=== PATIENT | female | born 1985 | race Two or more races ===

== ENCOUNTER 2016-04-21 13:17 | Emergency (ER) | payer MEDICAID, OTHER ==
[~2016-04-21] VITALS: Ht 167.6 cm; Wt 77.1 kg
[~2016-04-21 13:17] MED LIST: ABILIFY10 MG ORAL; ABILIFY15 MG ORAL; AFRIN15 ML NASAL; BENZTROPINE MESY1 MG PO; CIPRO500 MG PO; ELOCON15 G1 TP; IBUPROFEN600 MG ORAL; IBUPROFEN600 MG PO; LOESTRIN FE 1-1 EACH PO; LUTERA1 EACH PO; MONISTAT 745 GM VG; ZOFRAN8 MG ORAL
[2016-04-21 14:06] VITALS: BP 105/64
--- NOTE | 2016-04-21 14:29 | Emergency Room Report ---
History of Present Illness General Chief Complaint: Multiple Trauma/Fall Source: Patient Present Illness HPI 30-year-old female presents to emergency Department complaining of bilateral shoulder pain right-sided thigh pain in addition to left foot pain times one day status post mechanical slip and fall at work. Patient denies pain with ambulation patient states pain is exacerbated with palpation she rates her pain as 7/10 in severity. Denies bruises at this time denies erythema patient denies back pain or neck pain. Patient states she did not hit her head she did not lose consciousness. Denies open wounds. Denies numbness tingling or loss of sensation or gross motor movements of the extremities, incontinence of bowel or bladder. Denies CP, Palpitations, LOC, AMS, dizziness, Changes in Vision, Sensation, paresthesias, or a sudden severe headache. Allergies: Coded Allergies: No Known Allergies (Unverified , 10/26/12) Patient History Past Medical History: see triage record Past Surgical History: none Pertinent Family History: none Last Menstrual Period: 03/27/16 Now: No : 0 Immunizations: UTD Reviewed Nursing Documentation: PMH: Agreed, PSxH: Agreed Nursing Documentation-PMH Past Medical History: No Stated History Review of Systems All Other Systems: negative except mentioned in HPI Physical Exam Vital Signs Date Time Temp Pulse Resp B/P Pulse Ox O2 Delivery O2 Flow Rate FiO2 04/21/16 13:37 98.8 97 18 105/64 95 Room Air Sp02 EP Interpretation: reviewed, normal General Appearance: no apparent distress, alert, GCS 15, non-toxic Head: normocephalic, atraumatic Eyes: bilateral eye PERRL, bilateral eye normal inspection ENT: hearing grossly normal, normal pharynx, no angioedema, normal voice Neck: full range of motion, supple/symm/no masses Respiratory: chest non-tender, lungs clear, normal breath sounds, speaking full sentences Cardiovascular #1: regular rate, rhythm, no edema Gastrointestinal: normal bowel sounds, non tender, soft, no guarding, no rebound Rectal: deferred Genitourinary: normal inspection, no CVA tenderness Musculoskeletal: back normal, gait/station normal, normal range of motion, no calf tenderness, tender - TTP to bilateral shoulders, FROM with Pain , TTP to dorsum of left foot, and TTP to lateral right thight, no obvious deformities noted, no erythema, mild bruise noted to posterior right shoulder, no midline neck or spinal TTP. Neurologic: alert, oriented x3, responsive, motor strength/tone normal, sensory intact, speech normal Psychiatric: judgement/insight normal, memory normal, mood/affect normal, no suicidal/homicidal ideation Skin: normal color, no rash, warm/dry, well hydrated, other - mild bruise posterior rigth shoulder. Lymphatic: no adenopathy Medical Decision Making PA Attestation Dr. Newberry is my supervising Physician whom patient management has been discussed with. Diagnostic Impression: Primary Impression: Contusion Qualified Codes: S40.021A - Contusion of right upper arm, initial encounter Additional Impression: Fall Qualified Codes: W19.XXXA - Unspecified fall, initial encounter ER Course Pt. presents to the ED c/o of lateral shoulder pain, right thigh pain, left foot pain status post mechanical slip and fall at work. -No loss of consciousness, did not hit her head. Ddx considered but are not limited to Fracture, dislocation, contusion, Sprain/ Strain/Spasm Vital signs: are WNL, pt. is afebrile H&PE are most consistent with contusions will rule out fractures with imaging ORDERS: - X-ray Right Shoulder 3 views - negative for fx, Dislocation, or significant soft tissue injury, per preliminary read in ED by . - X-ray Left Shoulder 3 views - negative for fx, Dislocation, or significant soft tissue injury, per preliminary read in ED by Dr. Kohli - X-ray Left Foot 3 views - negative for fx, Dislocation, or significant soft tissue injury, per preliminary read in ED by Dr. Kohli ED INTERVENTIONS: - 500mg Tylenol PO DISCHARGE: At this time pt. is stable for d/c to home. Will provide printed patient care instructions, and any necessary prescriptions. Care plan and follow up instructions have been discussed with the patient prior to discharge. Last Vital Signs Date Time Temp Pulse Resp B/P Pulse Ox O2 Delivery O2 Flow Rate FiO2 04/21/16 14:06 98.8 73 18 105/64 97 Room Air Disposition: HOME, SELF-CARE Condition: Stable Scripts Acetaminophen* (TYLENOL EXTRA STRENGTH*) 500 Mg Tablet 500 MG ORAL Q6H, #30 TAB 0 Refills Prov: Dali Aleman 04/21/16 Departure Forms: Return to Work Return to Work Date: Apr 23, 2016 Work Restrictions: No Heavy Lifting Other Restrictions: light duty x 1 week. Return to Full Activity: Apr 28, 2016 Patient Instructions: Contusion Additional Instructions: Take medications as directed. Follow up with PCP in 3-5 days Return sooner to ED if new symptoms occur, or current symptoms become worse. aDli Aleman Apr 21, 2016 14:29
[2016-04-21] MEDS ORDERED: Acetaminophen 500mg (ES) tab ORAL ONE (14:30)
[2016-04-21] MEDS ORDERED: TYLENOL EXTRA500 MG ORAL (14:54)
[2016-04-21 15:08] VITALS: BP 102/64
[2016-04-21 15:09] VITALS: BP 102/64
--- NOTE | 2016-04-22 10:26 | Diagnostic Imaging Report ---
Indication: Pain Findings: 3 views of the left shoulder were obtained. Alignment of the left shoulder is normal. No acute fracture is identified. Soft tissues are unremarkable. Impression: Negative left shoulder examination
--- NOTE | 2016-04-22 10:26 | Diagnostic Imaging Report ---
Indication: Pain Findings: 3 views of the right shoulder were obtained. No acute fractures, malalignment, erosions or periostitis are identified. Bone mineralization is within normal limits. Soft tissues are unremarkable. Impression: Negative examination of the shoulder.
--- NOTE | 2016-04-22 10:27 | Diagnostic Imaging Report ---
Indication: Pain Comparison: None Findings: 3 views of the left foot were obtained. No acute fractures, malalignment, erosions or periostitis are identified. Bone mineralization is within normal limits. Soft tissues are unremarkable. Impression: No acute findings
[2016-06-23] MEDS ORDERED: TRAMADOL HCL50 MG ORAL (17:40)
[2016-06-23] MEDS ORDERED: SAPHRIS5 MG SL (17:40)
[2016-06-23] MEDS ORDERED: VENLAFAXINE HCL25 MG ORAL (17:40)
[2016-06-23] MEDS ORDERED: ZOFRAN4 M3 ORAL (17:40)
[2016-06-23] MEDS ORDERED: CYCLOBENZAPRINE10 MG ORAL (17:40)
[2016-06-23] MEDS ORDERED: RANITIDINE HCL150 MG ORAL (17:40)
== END 2016-04-21 15:11 | disposition home or self-care (01) ==
LOC: EMR 14:33
DX: S40.011A Contusion of right shoulder, initial encounter (principal); W01.0XXA Fall on same level from slipping, tripping and stumbling without subsequent striking against object, initial encounter; Y92.512 Supermarket, store or market as the place of occurrence of the external cause; Y99.0 Civilian activity done for income or pay; M79.651 Pain in right thigh; M79.672 Pain in left foot
CPT/HCPCS: 99284

== ENCOUNTER 2016-05-05 12:48 | Emergency (ER) | payer MEDICAID, OTHER ==
[~2016-05-05] VITALS: Ht 167.6 cm; Wt 77.1 kg
[~2016-05-05 12:48] MED LIST changes: +TYLENOL EXTRA500 MG ORAL
[2016-05-05] MEDS ORDERED: Famotidine 20 MG/ 2ML VIAL IVP ONE (13:15)
[2016-05-05] MEDS ORDERED: Dicyclomine HCl 10mg/5ml oral soln ORAL ONE (13:15)
[2016-05-05] MEDS ORDERED: Mylanta II UD 30ml ORAL ONE (13:15)
[2016-05-05] MEDS ORDERED: Lidocaine 2% Visc 15ml soln ORAL ONE (13:15)
[2016-05-05 13:42] LABS: MEAN CORPUSCULAR HGB CONC 33.3 G/DL (32.0-36.0); MEAN CORPUSCULAR VOLUME 84 FL (80-99); MEAN PLATELET VOLUME 7.1 FL (6.5-10.1); PLATELET COUNT 264 K/UL (150-450); RED BLOOD COUNT 5.17 M/UL (4.20-5.40); RED CELL DISTRIBUTION WIDTH 12.3 % (11.6-14.8); WHITE BLOOD COUNT 10.7 K/UL (4.8-10.8)
[2016-05-05 14:07] LABS: ALANINE AMINOTRANSFERASE 29 U/L (3-33); ALBUMIN/GLOBULIN RATIO 1.6 (1.0-2.7); ANION GAP 15 (5-15); ASPARTATE AMINO TRANSFERASE 20 U/L (5-40); CALCIUM 8.3 mg/dL (8.6-10.2); CARBON DIOXIDE 27 mEQ/L (20-30); CHLORIDE 96 mEQ/L (98-107); CREATININE 0.8 mg/dL (0.5-0.9); GLOMERULAR FILTRATION RATE > 60 mL/min (>60); HEMOLYSIS 1; LIPASE 18 U/L (< 60); POTASSIUM 3.9 mEQ/L (3.4-4.9); SODIUM 138 mEQ/L (135-145); TOTAL PROTEIN 7.3 g/dL (6.6-8.7)
[2016-05-05 14:09] VITALS: BP 119/77
[2016-05-05 14:12] LABS: BAND NEUTROPHILS % (MANUAL) 0 % (0-8); BASOPHILS % (MANUAL) 0 % (0-2); EOSINOPHILS % (MANUAL) 1 % (0-3); LYMPHOCYTES % (MANUAL) 5 % (20-45); NEUTROPHILS % (MANUAL) 92 % (45-75); PLATELET ESTIMATE ADEQUATE; PLATELET MORPHOLOGY NORMAL; TOTAL CELLS COUNTED 100
[2016-05-05] MEDS ORDERED: RANITIDINE HCL150 MG ORAL (14:24)
[2016-05-05] MEDS ORDERED: ZOFRAN ODT4 MG ORAL (14:24)
[2016-05-05] MEDS ORDERED: BENTYL10 MG ORAL (14:24)
[2016-05-05 14:41] VITALS: BP 119/77
--- NOTE | 2016-05-07 14:09 | Emergency Room Report ---
History of Present Illness General Chief Complaint: Abdominal Pain Source: Patient Present Illness HPI 30-year-old female presents ED complaining of abdominal pain vomiting diarrhea x2 days. Notes cramping lower abdominal pain, 7/10, nonradiating. No aggravating or relieving factors. Notes multiple episodes of diarrhea. Denies fevers or chills. Denies dysuria or hematuria. Denies a contacts or recent travel. Denies recent antibiotic use. Denies any other associated symptoms Allergies: Coded Allergies: No Known Allergies (Unverified , 10/26/12) Patient History Past Medical History: none Past Surgical History: none Pertinent Family History: none Social History: Denies: alcohol use, drug use, smoking Last Menstrual Period: One week ago Now: No Immunizations: UTD Reviewed Nursing Documentation: PMH: Agreed, PSxH: Agreed Nursing Documentation-PMH Past Medical History: No Stated History Review of Systems All Other Systems: negative except mentioned in HPI Physical Exam Vital Signs Date Time Temp Pulse Resp B/P Pulse Ox O2 Delivery O2 Flow Rate FiO2 05/05/16 12:52 98.1 119 18 108/69 95 Room Air Sp02 EP Interpretation: reviewed, normal General Appearance: no apparent distress, alert, GCS 15, non-toxic Head: normocephalic Eyes: bilateral eye PERRL, bilateral eye normal inspection ENT: normal ENT inspection Neck: normal inspection Respiratory: chest non-tender, lungs clear, normal breath sounds, speaking full sentences Cardiovascular #1: regular rate, rhythm, no edema Gastrointestinal: normal bowel sounds, non tender, soft, non-distended, no guarding, no rebound Rectal: deferred Genitourinary: no CVA tenderness Musculoskeletal: normal inspection Neurologic: alert, oriented x3, responsive, motor strength/tone normal, sensory intact, speech normal Psychiatric: normal inspection Skin: normal inspection Lymphatic: normal inspection Medical Decision Making Diagnostic Impression: Primary Impression: Gastroenteritis ER Course Hospital Course 30-year-old F presents to ED with cramping abdominal pain with vomiting, diarrhea differential diagnosis: gastritis, SBO, cholecystits, gastroenteritis Clinical course Patient placed on stretcher. On monitor technician. After initial history and physical I ordered labs, IV fluids, Zofran and pepcid Labs - no leukocytosis, electrolytes ok, LFTs normal, UA unremarkable Upon reassessment, patient states pain has improved. findings consistent with gastroenteritis I feel this is a highly complex case requiring extensive working including EKG/ Rhythm strip, Xray/CT/US, Blood/urine lab work, repeat exams while in ED, and administration of strong opiates/narcotics for pain control, admission to hospital or close patient follow up. Diagnosis - gastroenteritis Stable and discharged to home with prescriptions for Zantac, zofran. Followup with PMD. Return to ED if symptoms recur or worsen Labs Test 05/05/16 13:20 White Blood Count 10.7 K/UL (4.8-10.8) Red Blood Count 5.17 M/UL (4.20-5.40) Hemoglobin 14.5 G/DL (12.0-16.0) Hematocrit 43.4 % (37.0-47.0) Mean Corpuscular Volume 84 FL (80-99) Mean Corpuscular Hemoglobin 28.0 PG (27.0-31.0) Mean Corpuscular Hemoglobin Concent 33.3 G/DL (32.0-36.0) Red Cell Distribution Width 12.3 % (11.6-14.8) Platelet Count 264 K/UL (150-450) Mean Platelet Volume 7.1 FL (6.5-10.1) Neutrophils (%) (Auto) % (45.0-75.0) Lymphocytes (%) (Auto) % (20.0-45.0) Monocytes (%) (Auto) % (1.0-10.0) Eosinophils (%) (Auto) % (0.0-3.0) Basophils (%) (Auto) % (0.0-2.0) Differential Total Cells Counted 100 Neutrophils % (Manual) 92 % (45-75) Lymphocytes % (Manual) 5 % (20-45) Monocytes % (Manual) 2 % (1-10) Eosinophils % (Manual) 1 % (0-3) Basophils % (Manual) 0 % (0-2) Band Neutrophils 0 % (0-8) Platelet Estimate Adequate Platelet Morphology Normal Red Blood Cell Morphology Normal Sodium Level 138 mEQ/L (135-145) Potassium Level 3.9 mEQ/L (3.4-4.9) Chloride Level 96 mEQ/L (98-107) Carbon Dioxide Level 27 mEQ/L (20-30) Anion Gap 15 (5-15) Blood Urea Nitrogen 18 mg/dL (7-23) Creatinine 0.8 mg/dL (0.5-0.9) Estimat Glomerular Filtration Rate > 60 mL/min (>60) Glucose Level 118 mg/dL (74-106) Calcium Level 8.3 mg/dL (8.6-10.2) Total Bilirubin 0.4 mg/dL (0.0-1.2) Aspartate Amino Transf (AST/SGOT) 20 U/L (5-40) Alanine Aminotransferase (ALT/SGPT) 29 U/L (3-33) Alkaline Phosphatase 89 U/L (35-104) Total Protein 7.3 g/dL (6.6-8.7) Albumin 4.5 g/dL (3.5-5.2) Globulin 2.8 g/dL Albumin/Globulin Ratio 1.6 (1.0-2.7) Lipase 18 U/L (< 60) Last Vital Signs Date Time Temp Pulse Resp B/P Pulse Ox O2 Delivery O2 Flow Rate FiO2 05/05/16 14:41 98.1 105 18 119/77 95 Room Air Status: improved Disposition: HOME, SELF-CARE Condition: Stable Scripts Dicyclomine Hcl* (BENTYL*) 10 Mg Capsule 10 MG ORAL FOUR TIMES A DAY, #20 CAP Prov: VINNIE VALLEJO M.D. 05/05/16 Ranitidine Hcl* (ZANTAC*) 150 Mg Tablet 150 MG ORAL TWICE A DAY, #30 TAB Prov: VINNIE VALLEJO M.D. 05/05/16 Ondansetron Odt* (ZOFRAN ODT*) 4 Mg Tab.rapdis 4 MG ORAL Q6H Y for Nausea & Vomiting, #30 TAB 0 Refills Prov: VINNIE VALLEJO M.D. 05/05/16 Referrals: NON PHYSICIAN (PCP) Patient Instructions: Viral Gastroenteritis, Adult, [id number] VINNIE VALLEJO M.D. May 07, 2016 14:09
[2016-06-23] MEDS ORDERED: CYCLOBENZAPRINE10 MG ORAL (17:40)
[2016-06-23] MEDS ORDERED: TRAMADOL HCL50 MG ORAL (17:40)
[2016-06-23] MEDS ORDERED: VENLAFAXINE HCL25 MG ORAL (17:40)
[2016-06-23] MEDS ORDERED: RANITIDINE HCL150 MG ORAL (17:40)
[2016-06-23] MEDS ORDERED: ZOFRAN4 M3 ORAL (17:40)
[2016-06-23] MEDS ORDERED: SAPHRIS5 MG SL (17:40)
== END 2016-05-05 14:41 | disposition home or self-care (01) ==
LOC: EMR 13:15
DX: K52.9 Noninfective gastroenteritis and colitis, unspecified (principal)
CPT/HCPCS: 36415; 80053; 83690; 85007; 85025; 96374; 96375; 99284; J2405; S0028

== ENCOUNTER 2016-06-23 17:51 | Emergency (ER) | payer MEDICAID ==
[~2016-06-23] VITALS: Ht 165.1 cm; Wt 99.8 kg
[2016-06-23 17:39] VITALS: BP 132/80
[~2016-06-23 17:51] MED LIST changes: +BENTYL10 MG ORAL; +CYCLOBENZAPRINE10 MG ORAL; +RANITIDINE HCL150 MG ORAL; +SAPHRIS5 MG SL; +TRAMADOL HCL50 MG ORAL; +VENLAFAXINE HCL25 MG ORAL; +ZOFRAN ODT4 MG ORAL; +ZOFRAN4 M3 ORAL
--- NOTE | 2016-06-23 18:18 | Emergency Room Report ---
History of Present Illness General Chief Complaint: Behavioral Complaint Source: Patient, EMS (Griffin Hancock) Present Illness HPI Patient is a 30-year-old female brought in by ambulance after increased hallucinations. The patient prior history of schizophrenia. Patient states that she seeing blood everywhere. Patient had previously been on Abilify in which had stopped 2 weeks ago. (Griffin Hancock) Allergies: Coded Allergies: No Known Allergies (Unverified , 10/26/12) Patient History Reviewed Nursing Documentation: PMH: Agreed, PSxH: Agreed (Griffin Hancock) Nursing Documentation-PMH History Of Psychiatric Problem: Yes (Griffin Hancock) Review of Systems All Other Systems: negative except mentioned in HPI (Griffin Hancock) Physical Exam Vital Signs Date Time Temp Pulse Resp B/P Pulse Ox O2 Delivery O2 Flow Rate FiO2 06/23/16 17:34 97.9 124 18 132/80 99 Sp02 EP Interpretation: reviewed, normal General Appearance: normal inspection, well appearing, no apparent distress, alert, GCS 15, non-toxic Head: atraumatic ENT: normal ENT inspection, hearing grossly normal, normal voice Neck: normal inspection, full range of motion, supple, no bony tend Respiratory: normal inspection, lungs clear, normal breath sounds, no respiratory distress, no retraction, no wheezing Cardiovascular #1: regular rate, rhythm, no edema Gastrointestinal: normal inspection, normal bowel sounds, non tender, soft, no guarding, no hernia Genitourinary: no CVA tenderness Musculoskeletal: normal inspection, back normal, normal range of motion Neurologic: normal inspection, alert, responsive, speech normal Psychiatric: normal inspection, memory normal, other - flat affect Skin: normal inspection, normal color, no rash (Griffin Hancock) Medical Decision Making Diagnostic Impression: Primary Impression: Psychosis Qualified Codes: F29 - Unspecified psychosis not due to a substance or known physiological condition ER Course She presented for increased hallucinations. Differential diagnoses include substance abuse, psychosis, bipolar disorder, depression, malingering Because of complexity of patient's case laboratory testing and imaging studies were ordered. (Griffin Hancock) ER Course Hospital Course 30-year-old female presents with visual hallucinations. History of schizophrenia Clinical course Patient initially seen and evaluated by Dr. Hancock; please see his note for full history and physical Labs reviewed-electrolytes okay, no leukocytosis, hemoglobin/hematocrit stable Dr Noriega was consulted; agreed that patient did not require any immediate psychiatric evaluation as she is not a danger to herself or others. patient can followup as outpatient Patient was given Zyprexa in ED and on reassessment states she feels much better. Wishes to be discharged. Boyfriend is at bedside and agreed to take patient home and will followup with psychiatry tomorrow i. I feel this is a highly complex case requiring extensive working including EKG/Rhythm strip, Xray/CT/US, Blood/urine lab work, repeat exams while in ED, and administration of strong opiates/narcotics for pain control, admission to hospital or close patient follow up. Diagnosis - psychosis Stable and discharged to home. Followup with PMD. Return to ED if symptoms recur or worsen Labs Test 06/23/16 18:25 White Blood Count 10.4 K/UL (4.8-10.8) Red Blood Count 4.73 M/UL (4.20-5.40) Hemoglobin 13.6 G/DL (12.0-16.0) Hematocrit 40.3 % (37.0-47.0) Mean Corpuscular Volume 85 FL (80-99) Mean Corpuscular Hemoglobin 28.8 PG (27.0-31.0) Mean Corpuscular Hemoglobin Concent 33.8 G/DL (32.0-36.0) Red Cell Distribution Width 12.5 % (11.6-14.8) Platelet Count 260 K/UL (150-450) Mean Platelet Volume 6.8 FL (6.5-10.1) Neutrophils (%) (Auto) 62.2 % (45.0-75.0) Lymphocytes (%) (Auto) 29.2 % (20.0-45.0) Monocytes (%) (Auto) 5.6 % (1.0-10.0) Eosinophils (%) (Auto) 1.4 % (0.0-3.0) Basophils (%) (Auto) 1.6 % (0.0-2.0) Urine Color [place] Urine Appearance Cloudy Urine pH 5 (4.5-8.0) Urine Specific [place] 1.015 (1.005-1.035) Urine Protein 3+ (NEGATIVE) Urine Glucose (UA) Negative (NEGATIVE) Urine Ketones Negative (NEGATIVE) Urine Occult Blood 5+ (NEGATIVE) Urine Nitrite Negative (NEGATIVE) Urine Bilirubin Negative (NEGATIVE) Urine Urobilinogen Normal MG/DL (0.0-1.0) Urine Leukocyte Esterase 3+ (NEGATIVE) Urine RBC Tntc /HPF (0 - 2) Urine WBC 15-20 /HPF (0 - 2) Urine Squamous Epithelial Cells Moderate /LPF (NONE/OCC) Urine Bacteria Occasional /HPF (NONE) Urine HCG, Qualitative Negative Sodium Level 138 mEQ/L (135-145) Potassium Level 3.6 mEQ/L (3.4-4.9) Chloride Level 96 mEQ/L (98-107) Carbon Dioxide Level 24 mEQ/L (20-30) Anion Gap 18 (5-15) Blood Urea Nitrogen 14 mg/dL (7-23) Creatinine 0.8 mg/dL (0.5-0.9) Estimat Glomerular Filtration Rate > 60 mL/min (>60) Glucose Level 121 mg/dL (74-106) Calcium Level 8.9 mg/dL (8.6-10.2) Total Bilirubin < 0.2 mg/dL (0.0-1.2) Aspartate Amino Transf (AST/SGOT) 17 U/L (5-40) Alanine Aminotransferase (ALT/SGPT) 26 U/L (3-33) Alkaline Phosphatase 93 U/L (35-104) Total Protein 7.4 g/dL (6.6-8.7) Albumin 4.6 g/dL (3.5-5.2) Globulin 2.8 g/dL Albumin/Globulin Ratio 1.6 (1.0-2.7) Salicylates Level 2 mg/dL (10-30) Urine Opiates Screen Negative (NEGATIVE) Acetaminophen Level < 10 ug/mL (10-30) Urine Barbiturates Screen Negative (NEGATIVE) Phencyclidine (PCP) Screen Negative (NEGATIVE) Urine Amphetamines Screen Negative (NEGATIVE) Urine Benzodiazepines Screen Negative (NEGATIVE) Urine Cocaine Screen Negative (NEGATIVE) Urine Marijuana (THC) Screen Negative (NEGATIVE) Serum Alcohol < 10 mg/dL (VINNIE VALLEJO M.D.) Last Vital Signs Date Time Temp Pulse Resp B/P Pulse Ox O2 Delivery O2 Flow Rate FiO2 06/23/16 17:39 97.9 87 18 132/80 99 (Griffin Hancock) Status: improved (VINNIE VALLEJO M.D.) Disposition: HOME, SELF-CARE Condition: Stable Griffin Hancock 26, 2017 18:18 VINNIE VALLEJO M.D. Jun 24, 2016 02:47
[2016-06-23 18:42] LABS: BASOPHILS % (AUTO) 1.6 % (0.0-2.0); EOSINOPHILS % (AUTO) 1.4 % (0.0-3.0); LYMPHOCYTES % (AUTO) 29.2 % (20.0-45.0); MEAN CORPUSCULAR HEMOGLOBIN 28.8 PG (27.0-31.0); MEAN CORPUSCULAR HGB CONC 33.8 G/DL (32.0-36.0); MEAN CORPUSCULAR VOLUME 85 FL (80-99); MEAN PLATELET VOLUME 6.8 FL (6.5-10.1); MONOCYTES % (AUTO) 5.6 % (1.0-10.0); NEUTROPHILS % (AUTO) 62.2 % (45.0-75.0); PLATELET COUNT 260 K/UL (150-450); RED BLOOD COUNT 4.73 M/UL (4.20-5.40); RED CELL DISTRIBUTION WIDTH 12.5 % (11.6-14.8); WHITE BLOOD COUNT 10.4 K/UL (4.8-10.8)
[2016-06-23 18:43] LABS: APPEARANCE,URINE CLOUDY; KETONES,URINE NEGATIVE (NEGATIVE); LEUKOCYTE ESTERASE ,URINE 3+ (NEGATIVE); NITRITE,URINE NEGATIVE (NEGATIVE); PH,URINE 5 (4.5-8.0); PROTEIN,URINE 3+ (NEGATIVE); UROBILINOGEN,URINE NORMAL MG/DL (0.0-1.0)
[2016-06-23 18:52] LABS: RBC,URINE TNTC /HPF (0 - 2)
[2016-06-23 18:53] LABS: BACTERIA,URINE OCCASIONAL /HPF; SQUAMOUS EPITHELIAL CELL,UR MODERATE /LPF (NONE/OCC); WBC,URINE 15-20 /HPF (0 - 2)
[2016-06-23 19:01] LABS: ACETAMINOPHEN < 10 ug/mL (10-30); ALANINE AMINOTRANSFERASE 26 U/L (3-33); ALBUMIN/GLOBULIN RATIO 1.6 (1.0-2.7); ALCOHOL < 10 mg/dL; ANION GAP 18 (5-15); ASPARTATE AMINO TRANSFERASE 17 U/L (5-40); CALCIUM 8.9 mg/dL (8.6-10.2); CARBON DIOXIDE 24 mEQ/L (20-30); CHLORIDE 96 mEQ/L (98-107); CREATININE 0.8 mg/dL (0.5-0.9); GLOMERULAR FILTRATION RATE > 60 mL/min (>60); HEMOLYSIS 9; POTASSIUM 3.6 mEQ/L (3.4-4.9); SODIUM 138 mEQ/L (135-145); TOTAL PROTEIN 7.4 g/dL (6.6-8.7)
[2016-06-23] MEDS ORDERED: Cephalexin 500mg cap ORAL ONE (19:45)
[2016-06-23 19:55] VITALS: BP 127/98
[2016-06-23 20:49] VITALS: BP 127/98
== END 2016-06-23 20:49 | disposition home or self-care (01) ==
LOC: EDBD 17:51 → EMR 19:02
DX: F29 Unspecified psychosis not due to a substance or known physiological condition (principal); F20.9 Schizophrenia, unspecified
CPT/HCPCS: 36415; 80053; 80300; 80329; 81003; 81025; 85025; 87086; 87181; 99283

== ENCOUNTER 2016-08-07 05:59 | Emergency (ER) | payer MEDICAID ==
[~2016-08-07] VITALS: Ht 170.2 cm; Wt 85.3 kg
[2016-08-07] MEDS ORDERED: REXULTI1 MG PO (06:21)
[2016-08-07] MEDS ORDERED: SAPHRIS10 MG SL (06:21)
[2016-08-07] MEDS ORDERED: CORTISPORIN EAR10 ML OTIC (06:28)
[2016-08-07] MEDS ORDERED: ACETAMINOPHEN-1 EAC1 ORAL (06:28)
[2016-08-07] MEDS ORDERED: ZOFRAN ODT4 MG ORAL (06:34)
[2016-08-07 06:35] VITALS: BP 120/77
--- NOTE | 2016-08-09 06:49 | Emergency Room Report ---
History of Present Illness General Chief Complaint: Earache Source: Patient Present Illness HPI Patient presents with complaints of right ear pain Patient reports that she thought it might have been her tooth she was seen by her dentist and reports that she was put on amoxicillin but did not see any obvious dental pathology Patient has some pain coming down the right scm region as well Pain with touch and turning her head Denies any fevers Denies any pain with swallowing or talking Denies any trauma Patient feels discomfort when she touches her ear Patient reports that she was seen by urgent care as well Allergies: Coded Allergies: No Known Allergies (Unverified , 08/07/16) Patient History Past Medical History: see triage record Pertinent Family History: none Last Menstrual Period: 07/23/16 Now: No Reviewed Nursing Documentation: PMH: Agreed, PSxH: Agreed Nursing Documentation-PMH Past Medical History: No History, Except For History Of Psychiatric Problem: Yes - schzophrenia, depression Review of Systems All Other Systems: negative except mentioned in HPI Physical Exam Vital Signs Date Time Temp Pulse Resp B/P Pulse Ox O2 Delivery O2 Flow Rate FiO2 08/07/16 06:16 98.4 105 16 120/77 98 Room Air Sp02 EP Interpretation: reviewed, normal General Appearance: well appearing, no apparent distress Head: normocephalic, atraumatic Eyes: bilateral eye EOMI, bilateral eye PERRL ENT: other - The canal the right side appears inflamed and irritated, tympanic membrane itself is mildly bulging no other foreign body Neck: supple, thyroid normal, other - Patient had a palpable lymph node submental the right side Respiratory: lungs clear Cardiovascular #1: regular rate, rhythm Musculoskeletal: normal inspection Neurologic: alert, oriented x3, responsive, sheet metal insulator III-XII nml as tested Skin: no rash Lymphatic: no adenopathy Medical Decision Making Diagnostic Impression: Primary Impression: otitis externa ER Course On further exam patient does report that she was using a Q-tip in the right ear feels that she might a traumatized area, the area does appear to be in line with evidence of otitis externa Patient also appears to have a tender lymph node on palpation Appears to be fairly well localized Likely secondary to the infectious pathology Patient was prescribed ointment drops And will have initial conservative outpatient trial I did recommend that since she had seen several different providers Contacting ENT specialty would be beneficial if the symptoms do persist Last Vital Signs Date Time Temp Pulse Resp B/P Pulse Ox O2 Delivery O2 Flow Rate FiO2 08/07/16 06:35 98.4 16 120/77 98 Room Air 08/07/16 06:16 105 Status: unchanged Disposition: HOME, SELF-CARE Condition: Stable Scripts Ondansetron Odt* (ZOFRAN ODT*) 4 Mg Tab.rapdis 4 MG ORAL Q6H Y for Nausea & Vomiting, #20 TAB 0 Refills Prov: JIMI BARRAGAN D.O. 08/07/16 Acetaminophen With Codeine (T#3) (TYLENOL #3 TAB*) Y Tab 1 TAB ORAL Q8H Y for For Pain, #12 TAB Prov: JIMI BARRAGAN D.O. 08/07/16 Neomycin/Polymyxin B Sulf/Hc* (CORTISPORIN EAR SOLUTION*) 10 Ml Solution 2 DROP OTIC FOUR TIMES A DAY for 7 Days, #1 EA Instill in affected ear as directed for 7 days Prov: JIMI BARRAGAN D.O. 08/07/16 Referrals: [facility],REFERRING (PCP) Patient Instructions: Otitis Externa, [id number] Additional Instructions: Patient is provided with the discharge instructions notified to follow up with primary doctor in the next 2-3 days otherwise return to the er with any worsening symptoms. Please note that this report is being documented using [employer] technology. This can lead to erroneous entry secondary to incorrect interpretation by the dictating instrument. JIMI BARRAGAN D.O. August 09, 2016 06:49
== END 2016-08-07 06:38 | disposition home or self-care (01) ==
LOC: EMR 06:24
DX: H60.91 Unspecified otitis externa, right ear (principal); F32.9 Major depressive disorder, single episode, unspecified; F20.9 Schizophrenia, unspecified
CPT/HCPCS: 99284

== ENCOUNTER 2016-08-22 15:34 | Emergency (ER) | payer MEDICAID ==
[~2016-08-22] VITALS: Ht 170.2 cm; Wt 90.7 kg
[~2016-08-22 15:34] MED LIST changes: +ACETAMINOPHEN-1 EAC1 ORAL; +CORTISPORIN EAR10 ML OTIC; +REXULTI1 MG PO; +SAPHRIS10 MG SL
[2016-08-22] MEDS ORDERED: TRAZODONE HCL50 MG ORAL (15:43)
[2016-08-22] MEDS ORDERED: CYMBALTA60 MG ORAL (15:43)
[2016-08-22] MEDS ORDERED: REXULTI1 MG PO (15:43)
[2016-08-22] MEDS ORDERED: TESSALON PERLE100 MG ORAL (16:08)
[2016-08-22] MEDS ORDERED: AMOXICILLIN500 MG ORAL (16:08)
[2016-08-22 16:17] VITALS: BP 117/79
[2016-08-22 16:18] VITALS: BP 114/77
--- NOTE | 2016-08-22 21:42 | Emergency Room Report ---
History of Present Illness General Chief Complaint: Abdominal Pain Source: Patient Present Illness HPI The patient is a 31-year-old female presenting for sore throat, cough, headache for the past 2 days. She admits to a sick contact who was diagnosed with tonsillitis and given amoxicillin and symptoms improved. She states pain is an 8/10 dull ache to the back of the throat and does not radiate. Pain worse with swallowing. She admits to subjective fevers. She denies any other symptoms including N, V, dizziness, blurred vision, neck pain or stiffness, rash Allergies: Coded Allergies: No Known Allergies (Unverified , 08/07/16) Patient History Past Medical History: see triage record Pertinent Family History: none Reviewed Nursing Documentation: PMH: Agreed, PSxH: Agreed Nursing Documentation-PMH Past Medical History: No History, Except For History Of Psychiatric Problem: Yes - SCHIZOPHERENIA, DEPRESSION Review of Systems All Other Systems: negative except mentioned in HPI Physical Exam Vital Signs Date Time Temp Pulse Resp B/P Pulse Ox O2 Delivery O2 Flow Rate FiO2 08/22/16 15:37 98.1 101 20 114/77 97 Room Air Sp02 EP Interpretation: reviewed, normal General Appearance: no apparent distress, alert, GCS 15, non-toxic Head: normocephalic, atraumatic Eyes: bilateral eye PERRL, bilateral eye normal inspection ENT: hearing grossly normal, no angioedema, normal voice, TMs + canals normal, uvula midline, tonsillar swelling, pharyngeal erythema Neck: full range of motion, supple/symm/no masses Respiratory: chest non-tender, lungs clear, normal breath sounds, speaking full sentences Musculoskeletal: back normal, gait/station normal, normal range of motion, non- tender Neurologic: alert, oriented x3, responsive, motor strength/tone normal, sensory intact, speech normal Psychiatric: judgement/insight normal, memory normal, mood/affect normal, no suicidal/homicidal ideation Skin: normal color, no rash, warm/dry, well hydrated Lymphatic: adenopathy Medical Decision Making PA Attestation Dr. Gonzales is my supervising physician. Patient management was discussed with my supervising physician Diagnostic Impression: Primary Impression: Pharyngitis, acute Qualified Codes: J02.9 - Acute pharyngitis, unspecified ER Course The patient is a 31-year-old female presenting for sore throat, cough, headache for the past 2 days Differential diagnosis include but not limited to pharyngitis, sinusitis, AOM, bronchitis, PNA Physical exam: Vitals within normal limits. Afebrile. No apparent distress HEENT exam: There is bilateral tonsillar edema, erythema. Uvula midline. Moist mucous membranes. There is bilateral cervical lymphadenopathy. Lungs are clear to auscultation bilaterally Skin is warm and dry. No rash The patient will be discharged home with a prescription for amoxicillin and is given ER precautions. Patient will followup with primary care Last Vital Signs Date Time Temp Pulse Resp B/P Pulse Ox O2 Delivery O2 Flow Rate FiO2 08/22/16 16:18 98.1 20 114/77 97 Room Air 08/22/16 16:17 98 Status: improved Disposition: HOME, SELF-CARE Condition: Improved Scripts Benzonatate* (TESSALON PERLE*) 100 Mg Capsule 100 MG ORAL THREE TIMES A DAY, #15 PERLE Prov: JUSTIN HARLEY.A. 08/22/16 Amoxicillin* (AMOXIL*) 500 Mg Capsule 500 MG ORAL Q12HR, #20 CAP Prov: JUSTIN HARLEY P.A. 08/22/16 Referrals: NON PHYSICIAN (PCP) Patient Instructions: Pharyngitis, Sore Throat Additional Instructions: I discussed my findings with the patient. All questions and concerns have been answered. Treatment and medication compliance have been addressed. I advised the patient that they need to follow up with PMD in 3-5 days. Return to ED if pain remains or worsens, cough worsens or remains, you notice blood in your sputum, you notice wheezing, you experience a fever, or if needed for any reason. Patient verbalized understanding of discharge instructions. JUSTIN HARLEY August 22, 2016 21:42
== END 2016-08-22 16:19 | disposition home or self-care (01) ==
LOC: EMR 16:10
DX: J02.9 Acute pharyngitis, unspecified (principal); F20.9 Schizophrenia, unspecified; F32.9 Major depressive disorder, single episode, unspecified; R05 Cough; R51 Headache
CPT/HCPCS: 99284

== ENCOUNTER 2016-09-26 15:40 | Emergency (ER) | payer MEDICAID ==
[~2016-09-26] VITALS: Ht 167.6 cm; Wt 93.0 kg
[~2016-09-26 15:40] MED LIST changes: +AMOXICILLIN500 MG ORAL; +CYMBALTA60 MG ORAL; +TESSALON PERLE100 MG ORAL; +TRAZODONE HCL50 MG ORAL
[2016-09-26 15:51] VITALS: BP 116/82
[2016-09-26] MEDS ORDERED: Acetaminophen 500mg (ES) tab ORAL ONE (17:00)
--- NOTE | 2016-09-26 17:48 | Emergency Room Report ---
History of Present Illness General Chief Complaint: Headache Source: Patient Present Illness HPI 31-year-old female presents emergency department complaining of 10 out of 10 in severity right-sided pulsatile headache with photophobia x 2 days. denies nausea or vomiting, denies eye pain, floaters, or flashing lights. She states she has been getting headaches like this intermittently for approximately 3 months. Patient denies head trauma or fall. Patient denies history of migraines. Denies fevers, chills, rashes, or weakness. denies neck pain or stiffness. pt reports frequency, denies dysuria, hematuria, or . Denies CP, Palpitations, LOC, AMS, dizziness, Changes in Vision, Sensation, paresthesias, or a sudden severe headache. Denies recent spinal procedures. Allergies: Coded Allergies: No Known Allergies (Unverified , 08/07/16) Patient History Past Medical History: see triage record Past Surgical History: none Last Menstrual Period: 09/15/16 Now: No : 0 Para: 0 Reviewed Nursing Documentation: PMH: Agreed, PSxH: Agreed Nursing Documentation-PMH History Of Psychiatric Problem: Yes - schizoprenia, depression Review of Systems All Other Systems: negative except mentioned in HPI Physical Exam Vital Signs Date Time Temp Pulse Resp B/P Pulse Ox O2 Delivery O2 Flow Rate FiO2 09/26/16 15:51 98.2 105 18 116/82 95 Room Air Sp02 EP Interpretation: reviewed, normal General Appearance: no apparent distress, alert, GCS 15, non-toxic Head: normocephalic, atraumatic Eyes: bilateral eye EOMI, bilateral eye PERRL, bilateral eye normal inspection , bilateral eye photophobia ENT: hearing grossly normal, normal pharynx, no angioedema, normal voice Neck: full range of motion, no meningismus, no bony tend, supple/symm/no masses Respiratory: lungs clear, normal breath sounds, speaking full sentences Cardiovascular #1: regular rate, rhythm, no edema Genitourinary: normal inspection, no CVA tenderness Musculoskeletal: back normal, gait/station normal, normal range of motion Neurologic: alert, oriented x3, responsive, motor strength/tone normal, sensory intact, cerebellar normal, normal gait, speech normal, no pronator, other - no facial droop Psychiatric: judgement/insight normal, memory normal, mood/affect normal Skin: normal color, no rash, warm/dry, well hydrated Medical Decision Making PA Attestation Dr. Smith is my supervising Physician whom patient management has been discussed with. Diagnostic Impression: Primary Impression: Headache Qualified Codes: R51 - Headache ER Course 31-year-old female presents emergency department complaining of 10 out of 10 in severity right-sided pulsatile headache with photophobia x 2 days. denies nausea or vomiting, denies eye pain, floaters, or flashing lights. She states she has been getting headaches like this intermittently for approximately 3 months. Patient denies head trauma or fall. Patient denies history of migraines. Denies fevers, chills, rashes, or weakness. denies neck pain or stiffness. pt reports frequency, denies dysuria, hematuria, or . Denies CP, Palpitations, LOC, AMS, dizziness, Changes in Vision, Sensation, paresthesias, or a sudden severe headache. Denies recent spinal procedures. Ddx considered but are not limited to migraine, SAH, Psedudo motor Cerebri, Mass lesion, Cluster MANZANO, Tension MANZANO, Post lumbar puncture MANZANO. Vital signs: are WNL, pt. is afebrile H&PE are most consistent with migraine headache with aura. no focal neurological deficits. ORDERS: - UA: unremarkable ED INTERVENTIONS: - Reglan PO -Tylenol PO --upon re-evaluation pt. states her pain has subsided with above interventions. DISCHARGE: At this time pt. is stable for d/c to home. Will provide printed patient care instructions, and any necessary prescriptions. Care plan and follow up instructions have been discussed with the patient prior to discharge. Labs Test 09/26/16 18:00 Urine Color Pale yellow Urine Appearance Clear Urine pH 5 (4.5-8.0) Urine Specific [place] 1.025 (1.005-1.035) Urine Protein Negative (NEGATIVE) Urine Glucose (UA) Negative (NEGATIVE) Urine Ketones Negative (NEGATIVE) Urine Occult Blood 1+ (NEGATIVE) Urine Nitrite Negative (NEGATIVE) Urine Bilirubin Negative (NEGATIVE) Urine Urobilinogen Normal MG/DL (0.0-1.0) Urine Leukocyte Esterase 1+ (NEGATIVE) Urine RBC 0-2 /HPF (0 - 2) Urine WBC 0-2 /HPF (0 - 2) Urine Squamous Epithelial Cells Few /LPF (NONE/OCC) Urine Bacteria Few /HPF (NONE) Urine HCG, Qualitative Negative Last Vital Signs Date Time Temp Pulse Resp B/P Pulse Ox O2 Delivery O2 Flow Rate FiO2 09/26/16 15:51 98.2 105 18 116/82 95 Room Air Disposition: HOME, SELF-CARE Condition: Stable Scripts Acetaminophen* (TYLENOL EXTRA STRENGTH*) 500 Mg Tablet 500 MG ORAL Q6H Y for For Headache, #20 TAB 0 Refills Prov: Dali Aleman 09/26/16 Referrals: [facility],REFERRING (PCP) Patient Instructions: Migraine Headache Additional Instructions: Take medications as directed. Follow up with NEUROLOGIST in 3-5 days , You may have to contact your primary care doctors office for a referral. Return sooner to ED if new symptoms occur, or current symptoms become worse. - Please note that this Emergency Department Report was dictated using [employer] teacher technology software, occasionally this can lead to erroneous entry secondary to interpretation by the dictation equipment. Dali Aleman Sep 26, 2016 17:48
[2016-09-26 18:16] LABS: APPEARANCE,URINE CLEAR; KETONES,URINE NEGATIVE (NEGATIVE); LEUKOCYTE ESTERASE ,URINE 1+ (NEGATIVE); NITRITE,URINE NEGATIVE (NEGATIVE); PH,URINE 5 (4.5-8.0); PROTEIN,URINE NEGATIVE (NEGATIVE); UROBILINOGEN,URINE NORMAL MG/DL (0.0-1.0)
[2016-09-26 18:23] LABS: BACTERIA,URINE FEW /HPF; RBC,URINE 0-2 /HPF (0 - 2); SQUAMOUS EPITHELIAL CELL,UR FEW /LPF (NONE/OCC); WBC,URINE 0-2 /HPF (0 - 2)
[2016-09-26] MEDS ORDERED: TYLENOL EXTRA500 MG ORAL (18:33)
[2016-09-26 18:53] VITALS: BP 102/69
== END 2016-09-26 18:55 | disposition home or self-care (01) ==
LOC: EMR 16:33
DX: R51 Headache (principal); H53.149 Visual discomfort, unspecified; F32.9 Major depressive disorder, single episode, unspecified; F20.9 Schizophrenia, unspecified
CPT/HCPCS: 81003; 81025; 99283

== ENCOUNTER 2016-10-18 02:58 | Emergency (ER) | payer MEDICAID ==
[~2016-10-18] VITALS: Ht 170.2 cm; Wt 93.0 kg
[2016-10-18] MEDS ORDERED: CYMBALTA60 MG ORAL (03:12)
[2016-10-18] MEDS ORDERED: ABILIFY20 MG ORAL (03:12)
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
[2016-10-18 03:26] VITALS: BP 105/70
[2016-10-18 03:29] VITALS: BP 105/70
== END 2016-10-18 03:45 | disposition home or self-care (01) ==
LOC: EMR 03:24
DX: F29 Unspecified psychosis not due to a substance or known physiological condition (principal); F20.9 Schizophrenia, unspecified; F32.9 Major depressive disorder, single episode, unspecified
CPT/HCPCS: 99282

== ENCOUNTER 2016-11-09 19:11 | Emergency (ER) | payer MEDICAID ==
[~2016-11-09] VITALS: Ht 167.6 cm; Wt 94.3 kg
[~2016-11-09 19:11] MED LIST changes: +ABILIFY20 MG ORAL
[2016-11-09 19:36] VITALS: BP 127/80
[2016-11-09 19:37] VITALS: BP 127/80
[2016-11-09] MEDS ORDERED: Ziprasidone 20mg cap ORAL ONE (19:45)
--- NOTE | 2016-11-09 20:14 | Emergency Room Report ---
History of Present Illness General Chief Complaint: Behavioral Complaint Present Illness HPI 31 YO female presents to the ED c/o auditory hallucinations times one hour. Patient history of schizophrenia. Patient states that she just saw her psychiatrist on Friday and was to be started on Geodon however the pharmacy he had to order the medication. Patient states she currently takes Abilify nightly in addition to Cymbalta daily for management of her schizophrenia. Patient states she has had auditory hallucinations in the past however these are much more pronounced.Pt states she hears a female voice yelling at her saying that bad things are going to happen to her in her sleep tonight. pt. reports hx of panic attack approximately 1 month ago. pt. states she feels as though she is being choked. pt. denies ETOH or drug use. pt. states she has been compliant on her medications. pt. denies SI or HI. pt. denies prior suicidal attempts. pt. denies previous hospitalizations. denies nausea, vomiting , frequency, dysuria, or abdominal pain. Denies CP, Palpitations, LOC, AMS, dizziness, Changes in Vision, Sensation, paresthesias, or a sudden severe headache. (Dali Aleman P.A.) Allergies: Coded Allergies: No Known Allergies (Unverified , 08/07/16) Patient History Past Medical History: see triage record Past Surgical History: none Pertinent Family History: none Last Menstrual Period: last month Now: No Reviewed Nursing Documentation: PMH: Agreed, PSxH: Agreed (Dali Aleman P.Tacho) Nursing Documentation-PMH History Of Psychiatric Problem: Yes - SCHIZOPHRENIA (Dali Aleman P.ADarci) Review of Systems All Other Systems: negative except mentioned in HPI (Dali Aleman P.A.) Physical Exam Vital Signs Date Time Temp Pulse Resp B/P Pulse Ox O2 Delivery O2 Flow Rate FiO2 11/09/16 19:17 98.4 125 18 127/80 97 Room Air Sp02 EP Interpretation: reviewed, abnormal - tachycardic General Appearance: no apparent distress, alert, GCS 15, non-toxic Head: normocephalic, atraumatic Eyes: bilateral eye PERRL, bilateral eye normal inspection ENT: hearing grossly normal, normal voice Neck: full range of motion, supple/symm/no masses Respiratory: lungs clear, normal breath sounds, speaking full sentences Cardiovascular #1: regular rate, rhythm, no edema Musculoskeletal: back normal, gait/station normal, normal range of motion Neurologic: alert, oriented x3, responsive, motor strength/tone normal, sensory intact, speech normal Psychiatric: judgement/insight normal, memory normal, no suicidal/homicidal ideation, anxious, other - auditory hallucinations, pt. is unexpectidly tearful but easily consoled with verbal re-assurance. Skin: normal color, no rash, warm/dry, well hydrated (Dali Aleman) Medical Decision Making PA Attestation Dr. Gonzales is my supervising Physician whom patient management has been discussed with. (Dali Aleman) Diagnostic Impression: Primary Impression: Auditory hallucinations Additional Impression: UTI (urinary tract infection) Qualified Codes: N30.00 - Acute cystitis without hematuria ER Course 31 YO female presents to the ED c/o auditory hallucinations times one hour. Patient history of schizophrenia. Patient states that she just saw her psychiatrist on Friday and was to be started on Geodon however the pharmacy he had to order the medication. Patient states she currently takes Abilify nightly in addition to Cymbalta daily for management of her schizophrenia. Patient states she has had auditory hallucinations in the past however these are much more pronounced.Pt states she hears a female voice yelling at her saying that bad things are going to happen to her in her sleep tonight. pt. reports hx of panic attack approximately 1 month ago. pt. states she feels as though she is being choked. pt. denies ETOH or drug use. pt. states she has been compliant on her medications. pt. denies SI or HI. pt. denies prior suicidal attempts. pt. denies previous hospitalizations. denies nausea, vomiting , frequency, dysuria, or abdominal pain. Denies CP, Palpitations, LOC, AMS, dizziness, Changes in Vision, Sensation, paresthesias, or a sudden severe headache. Pt is cooperative, and has an anxious affect. pt. does become tearful Ddx considered but are not limited to OD, SI/HI, psychosis, UTI, intoxication Vital signs: are WNL, pt. is afebrile H&PE are most consistent with behavioral/mental health issue: exacerbation of auditory hallucinations with increased anxiety. ORDERS: -UA: few bacteria, elevated WBC's and Leukocytes, indicative of UTI. -UDS: negative -Urine Hcg: Negative ED INTERVENTIONS: -20mg Geodon - 1mg Ativan PO -- Re-assessment : pt. states her hallucinations have reduced, and the few left she is able to ignore. d/w pt. and responsible republican: father that pt. is to return to ED with worsening or new symptoms, will give rx of small quantity to take to an alternate pharmacy that may have geodon in stock until her full rx can be filled at her regular pharmacy. pt. is also given [facility] information as an additional resource. DISCHARGE: At this time pt. is stable for d/c to home. Will provide printed patient care instructions, and any necessary prescriptions. Care plan and follow up instructions have been discussed with the patient prior to discharge. Labs Test 11/09/16 20:20 Urine Color Pale yellow Urine Appearance Clear Urine pH 6 (4.5-8.0) Urine Specific [place] 1.020 (1.005-1.035) Urine Protein Negative (NEGATIVE) Urine Glucose (UA) Negative (NEGATIVE) Urine Ketones Negative (NEGATIVE) Urine Occult Blood 1+ (NEGATIVE) Urine Nitrite Negative (NEGATIVE) Urine Bilirubin Negative (NEGATIVE) Urine Urobilinogen Normal MG/DL (0.0-1.0) Urine Leukocyte Esterase 3+ (NEGATIVE) Urine RBC 2-4 /HPF (0 - 2) Urine WBC 5-10 /HPF (0 - 2) Urine Squamous Epithelial Cells Few /LPF (NONE/OCC) Urine Bacteria Few /HPF (NONE) Urine HCG, Qualitative Negative Urine Opiates Screen Negative (NEGATIVE) Urine Barbiturates Screen Negative (NEGATIVE) Phencyclidine (PCP) Screen Negative (NEGATIVE) Urine Amphetamines Screen Negative (NEGATIVE) Urine Benzodiazepines Screen Negative (NEGATIVE) Urine Cocaine Screen Negative (NEGATIVE) Urine Marijuana (THC) Screen Negative (NEGATIVE) (Dali Aleman P.ADarci) ER Course I observed this patient and agree with the treatment plan. (Lauri Gonzales M.D.) Last Vital Signs Date Time Temp Pulse Resp B/P Pulse Ox O2 Delivery O2 Flow Rate FiO2 11/09/16 19:36 98.4 18 127/80 97 Room Air 11/09/16 19:17 125 (Dali Aleman) Disposition: HOME, SELF-CARE Condition: Stable Scripts Nitrofurantoin Monohyd/M-Cryst* (MACROBID 100 MG*) 100 Mg Capsule 100 MG ORAL EVERY 12 HOURS for 5 Days, #10 CAP Prov: Dali Aleman 11/09/16 Ziprasidone Hcl* (GEODON*) 20 Mg Capsule 20 MG ORAL DAILY for 2 Days, #2 CAP 0 Refills Prov: Dali Aleman 11/09/16 Referrals: [facility],REFERRING (PCP) Patient Instructions: Ziprasidone capsules Additional Instructions: Take medications as directed. Follow up with a Your Psychiatric Provider in 2 days, even if your symptoms have resolved. --Please review information for [facility] for follow up and medication management if you are unable to be seen by your primary psychiatrist in a timely manner. Return sooner to ED if new symptoms occur, or current symptoms become worse. - Please note that this Emergency Department Report was dictated using [employer] specialist technology software, occasionally this can lead to erroneous entry secondary to interpretation by the dictation equipment. Dali Aleman Nov 09, 2016 20:14 Lauri Gonzales M.D. Nov 11, 2016 07:14
[2016-11-09] MEDS ORDERED: LORazepam 1mg tab ORAL ONE (20:30)
[2016-11-09] MEDS ORDERED: GEODON20 MG ORAL (20:34)
[2016-11-09 20:41] LABS: APPEARANCE,URINE CLEAR; KETONES,URINE NEGATIVE (NEGATIVE); LEUKOCYTE ESTERASE ,URINE 3+ (NEGATIVE); NITRITE,URINE NEGATIVE (NEGATIVE); PH,URINE 6 (4.5-8.0); PROTEIN,URINE NEGATIVE (NEGATIVE); UROBILINOGEN,URINE NORMAL MG/DL (0.0-1.0)
[2016-11-09 20:48] VITALS: BP 127/80
[2016-11-09 20:48] LABS: BACTERIA,URINE FEW /HPF; SQUAMOUS EPITHELIAL CELL,UR FEW /LPF (NONE/OCC)
[2016-11-09] MEDS ORDERED: NITROFURANTOIN100 M2 ORAL (22:14)
== END 2016-11-09 20:48 | disposition home or self-care (01) ==
LOC: EMR 19:40
DX: R44.0 Auditory hallucinations (principal); N30.00 Acute cystitis without hematuria; F20.9 Schizophrenia, unspecified; R00.0 Tachycardia, unspecified
CPT/HCPCS: 80300; 81003; 81025; 99284

== ENCOUNTER 2016-12-27 03:53 | Emergency (ER) | payer MEDICAID ==
[~2016-12-27] VITALS: Ht 170.2 cm; Wt 93.0 kg
[~2016-12-27 03:53] MED LIST changes: +GEODON20 MG ORAL; +NITROFURANTOIN100 M2 ORAL
[2016-12-27 04:24] VITALS: BP 109/72
--- NOTE | 2016-12-27 04:39 | Emergency Room Report ---
History of Present Illness General Chief Complaint: Toothache Source: Patient Present Illness HPI 31-year-old female with schizophrenia presenting with left facial pain and swelling for 2 days. Patient states that she started to have pain in the left upper dental area which then progressed to redness to face Patient states that she saw a dentist yesterday, was prescribed amoxicillin, took 2 doses as well as Motrin, but states overnight that pain swelling and redness has spread across her entire face her eyes. Denies any fever or chills. Denies chest pain shortness of breath nausea vomiting diarrhea Allergies: Coded Allergies: No Known Allergies (Unverified , 08/07/16) Patient History Past Medical History: see triage record Past Surgical History: none Pertinent Family History: none Last Menstrual Period: Nov Reviewed Nursing Documentation: PMH: Agreed, PSxH: Agreed Nursing Documentation-PMH History Of Psychiatric Problem: Yes - DEPRESSION Review of Systems All Other Systems: negative except mentioned in HPI Physical Exam Vital Signs Date Time Temp Pulse Resp B/P (MAP) Pulse Ox O2 Delivery O2 Flow Rate FiO2 12/27/16 03:58 97.5 109 18 109/72 97 Room Air Sp02 EP Interpretation: reviewed, normal General Appearance: normal inspection, well appearing, no apparent distress, alert, GCS 15, non-toxic Head: normocephalic, atraumatic Eyes: bilateral eye normal inspection, bilateral eye PERRL, bilateral eye EOMI ENT: normal voice, moist mucus membranes, other - Left upper molar poor dentition, tenderness in the gum area however no fluctuance palpated or seen, no purulent drainage. Left facial edema and erythema extending up to periorbital region. Neck: normal inspection, full range of motion, supple Respiratory: normal inspection, lungs clear, normal breath sounds, no respiratory distress, no retraction, no wheezing, speaking full sentences, chest symmetrical Cardiovascular #1: normal inspection, regular rate, rhythm, no edema, normal capillary refill Cardiovascular #2: 2+ radial (R), 2+ radial (L) Gastrointestinal: normal inspection, non tender, soft, non-distended, no guarding Musculoskeletal: normal inspection, back normal, normal range of motion, non- tender Neurologic: normal inspection, alert, oriented x3, responsive, motor strength/ tone normal, sensory intact, normal gait, speech normal Psychiatric: normal inspection, judgement/insight normal, memory normal Skin: normal inspection, normal color, no rash, warm/dry, well hydrated, normal turgor Medical Decision Making Diagnostic Impression: Primary Impression: Facial cellulitis ER Course 31-year-old female with redness/swelling to left dental area and left face for 2 days DDX: cellulitis No crepitus / pain out of proportion / rapid spreading for concern for nec fasc Plan: Antibiotics Anticipate admission as patient failed outpatient management ER course: Patient has been monitored during ED stay, HD stable Received clindamycin Disposition: Patient is to be admitted to [facility] Patient requires inpatient admission for facial cellulitis, as by mouth antibiotics not working, requires IV antibiotics. Pt endorsed to Dr Cast who is receiving physician to [facility] she is be xferred due to insurance issues. Please note that this Emergency Department Report was dictated using OrderMotioninstrument repair specialist technology software, occasionally this can lead to erroneous entry secondary to interpretation by the dictation equipment. Laboratory Tests Test 12/27/16 04:40 White Blood Count 13.2 K/UL (4.8-10.8) H Red Blood Count 4.50 M/UL (4.20-5.40) Hemoglobin 12.3 G/DL (12.0-16.0) Hematocrit 38.3 % (37.0-47.0) Mean Corpuscular Volume 85 FL (80-99) Mean Corpuscular Hemoglobin 27.4 PG (27.0-31.0) Mean Corpuscular Hemoglobin Concent 32.1 G/DL (32.0-36.0) Red Cell Distribution Width 13.0 % (11.6-14.8) Platelet Count 275 K/UL (150-450) Mean Platelet Volume 7.2 FL (6.5-10.1) Neutrophils (%) (Auto) 63.5 % (45.0-75.0) Lymphocytes (%) (Auto) 25.3 % (20.0-45.0) Monocytes (%) (Auto) 5.9 % (1.0-10.0) Eosinophils (%) (Auto) 4.6 % (0.0-3.0) H Basophils (%) (Auto) 0.7 % (0.0-2.0) Sodium Level Pending Potassium Level Pending Chloride Level Pending Carbon Dioxide Level Pending Blood Urea Nitrogen Pending Creatinine Pending Estimate Glomerular Filtration Rate Pending Glucose Level Pending Lactic Acid Level Pending Calcium Level Pending Total Bilirubin Pending Aspartate Amino Transferase (AST) Pending Alanine Aminotransferase (ALT) Pending Alkaline Phosphatase Pending Total Protein Pending Albumin Pending Globulin Pending Last Vital Signs Date Time Temp Pulse Resp B/P (MAP) Pulse Ox O2 Delivery O2 Flow Rate FiO2 12/27/16 04:24 97.5 109 18 109/72 97 Room Air Disposition: XFER SHT-TRM HOSP Condition: Serious Referrals: [facility]ERR[facility] (PCP) Slade Linton M.D. Dec 27, 2016 04:38
[2016-12-27] MEDS ORDERED: Clindamycin 600mg 50 ML IVPB ONE (04:45)
[2016-12-27] MEDS ORDERED: Morphine Sulfate 4mg/ml Inj IVP ONE (05:15)
[2016-12-27 05:27] LABS: BASOPHILS % (AUTO) 0.7 % (0.0-2.0); EOSINOPHILS % (AUTO) 4.6 % (0.0-3.0); LYMPHOCYTES % (AUTO) 25.3 % (20.0-45.0); MEAN CORPUSCULAR HEMOGLOBIN 27.4 PG (27.0-31.0); MEAN CORPUSCULAR HGB CONC 32.1 G/DL (32.0-36.0); MEAN CORPUSCULAR VOLUME 85 FL (80-99); MEAN PLATELET VOLUME 7.2 FL (6.5-10.1); MONOCYTES % (AUTO) 5.9 % (1.0-10.0); NEUTROPHILS % (AUTO) 63.5 % (45.0-75.0); PLATELET COUNT 275 K/UL (150-450); WHITE BLOOD COUNT 13.2 K/UL (4.8-10.8)
[2016-12-27 06:21] VITALS: BP 118/79
[2016-12-27 06:51] VITALS: BP 118/79
[2016-12-27 06:51] LABS: ALANINE AMINOTRANSFERASE 16 U/L (3-33); ALBUMIN/GLOBULIN RATIO 1.4 (1.0-2.7); ANION GAP 13 (5-15); ASPARTATE AMINO TRANSFERASE 12 U/L (5-40); CALCIUM 8.5 mg/dL (8.6-10.2); CARBON DIOXIDE 25 mEQ/L (20-30); CHLORIDE 101 mEQ/L (98-107); CREATININE 0.7 mg/dL (0.5-0.9); GLOMERULAR FILTRATION RATE > 60 mL/min (>60); HEMOLYSIS 29; POTASSIUM 3.7 mEQ/L (3.4-4.9); SODIUM 139 mEQ/L (135-145); TOTAL PROTEIN 6.9 g/dL (6.6-8.7)
== END 2016-12-27 06:54 | disposition short-term general hospital (02) ==
LOC: EMR 04:20
DX: L03.211 Cellulitis of face (principal); F32.9 Major depressive disorder, single episode, unspecified
CPT/HCPCS: 36415; 80053; 83605; 85025; 87040; 96374; 96375; 99285; J2270; S0077

== ENCOUNTER 2017-02-18 17:36 | Emergency (ER) | payer MEDICAID ==
[~2017-02-18] VITALS: Ht 167.6 cm; Wt 100.2 kg
[2017-02-18] MEDS ORDERED: BACITRACIN-P28.35 GM TP (18:27)
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
[2017-02-18] MEDS ORDERED: Bacitracin Oint UD TOPIC ONE (18:30)
[2017-02-18 18:51] VITALS: BP 124/88
[2017-02-18 18:56] VITALS: BP 124/88
== END 2017-02-18 19:12 | disposition home or self-care (01) ==
LOC: EMR 17:45
DX: S00.81XA Abrasion of other part of head, initial encounter (principal); Y04.2XXA Assault by strike against or bumped into by another person, initial encounter; Y92.89 Other specified places as the place of occurrence of the external cause
CPT/HCPCS: 99283

== ENCOUNTER 2017-03-01 04:24 | Emergency (ER) | payer MEDICAID ==
[~2017-03-01] VITALS: Ht 167.6 cm; Wt 100.2 kg
[~2017-03-01 04:24] MED LIST changes: +BACITRACIN-P28.35 GM TP
[2017-03-01] MEDS ORDERED: PENICILLIN V P500 MG ORAL (04:36)
[2017-03-01] MEDS ORDERED: LIDOCAINE VISC100 ML ORAL (04:36)
[2017-03-01 04:38] VITALS: BP 110/75
[2017-03-01] MEDS ORDERED: Lidocaine 2% Visc 15ml soln ORAL ONE (04:45)
[2017-03-01] MEDS ORDERED: Ketorolac 60mg Inj IM ONE (04:45)
[2017-03-01 04:51] VITALS: BP 110/75
--- NOTE | 2017-03-01 05:43 | Emergency Room Report ---
History of Present Illness General Chief Complaint: Toothache Source: Patient Present Illness HPI Patient is a 31-year-old female who presented after increased right-sided toothache. Patient had been having toothache for approximately 2-3 days. She denies any fever she reports having some pain to the right upper incisor area. She denies recent trauma. Allergies: Coded Allergies: No Known Allergies (Unverified , 08/07/16) Patient History Past Medical History: see triage record Last Menstrual Period: 01/23/17 Now: No Reviewed Nursing Documentation: PMH: Agreed, PSxH: Agreed Nursing Documentation-PMH Past Medical History: No History, Except For Review of Systems All Other Systems: negative except mentioned in HPI Physical Exam Vital Signs Date Time Temp Pulse Resp B/P (MAP) Pulse Ox O2 Delivery O2 Flow Rate FiO2 03/01/17 04:28 97.5 93 16 110/75 99 Room Air General Appearance: well appearing, no apparent distress, alert, GCS 15 Head: normocephalic, atraumatic ENT: hearing grossly normal, normal voice Neck: full range of motion, supple Respiratory: lungs clear, no respiratory distress, speaking full sentences Cardiovascular #1: normal inspection Gastrointestinal: normal inspection Musculoskeletal: normal inspection, back normal, gait/station normal, no calf tenderness Neurologic: normal inspection, alert, oriented x3, responsive, pupil personnel worker III-XII nml as tested, normal gait Psychiatric: normal inspection, mood/affect normal Skin: no rash Medical Decision Making Diagnostic Impression: Primary Impression: Pain, dental ER Course patient present dental pain. Differential diagnosis included but was not limited to trigeminal neuralgia, dental abscess, dry socket, osteomyelitis, nerve injury. The patient was noted to have a benign exam. There is no evidence of abscess. The patient is advised to follow up with dentist in 1-2 days. Patient is advised to return if any worsening condition or if any changes in status that are concerning. The patient was given prescription for penicillin and lidocaine viscous. Last Vital Signs Date Time Temp Pulse Resp B/P (MAP) Pulse Ox O2 Delivery O2 Flow Rate FiO2 03/01/17 04:51 97.5 93 16 110/75 99 Room Air Status: improved Disposition: HOME, SELF-CARE Condition: Stable Scripts Lidocaine HCl 2% Viscous (Lidocaine HCl 2% Viscous) 100 Ml Solution 15 ML ORAL QID, #120 ML Prov: Griffin Hancock 03/01/17 Penicillin V Potassium* (PENVK*) 500 Mg Tablet 500 MG ORAL TWICE A DAY, #14 TAB Prov: Griffin Hancock 03/01/17 Referrals: [facility]ERR[facility] (PCP) Patient Instructions: Dental Pain Additional Instructions: Follow up with your dentist in 1-2 days. Griffin Hancock Mar 01, 2017 05:43
== END 2017-03-01 04:51 | disposition home or self-care (01) ==
LOC: EMR 04:40
DX: K08.89 Other specified disorders of teeth and supporting structures (principal)
CPT/HCPCS: 96372; 99284

== ENCOUNTER 2017-11-11 19:21 | Emergency (ER) | payer MEDICAID ==
[~2017-11-11] VITALS: Ht 170.2 cm; Wt 103.4 kg
[~2017-11-11 19:21] MED LIST changes: +LIDOCAINE VISC100 ML ORAL; +PENICILLIN V P500 MG ORAL
[2017-11-11 19:39] VITALS: BP 132/73
[2017-11-11] MEDS ORDERED: MEDROL4 MG ORAL (19:57)
[2017-11-11] MEDS ORDERED: OPCON-A EYE DRO15 ML OP (19:57)
[2017-11-11] MEDS ORDERED: HYDROCORTISONE30 G2 TP (19:57)
--- NOTE | 2017-11-11 19:58 | Emergency Room Report ---
History of Present Illness General Chief Complaint: Skin Rash/Abscess Present Illness HPI 32-year-old female patient presents ER complaining of possible allergic reaction following eating tomato sauce with spaghetti. Reports that following eating the food she began to experience itching of symptoms all over the body and 3 itchy areas on her lower leg. Reports eyes feeling itchy as well. Denies alcohol crusting or vision loss. Denies fever, chest pain, shortness breath, vomiting, other acute symptoms. Denies history of food allergies to spaghetti or tomato sauce. Reports history of allergy to mushrooms. Denies tongue swelling. Denies history of diabetes or hypertension. Reports took a Benadryl 25 mg about half an hour ago but is still experiencing itching symptoms. Denies other acute symptoms. DEnies hx of liver problems. denies history of anaphylaxis. Allergies: Coded Allergies: No Known Allergies (Unverified , 08/07/16) Patient History Past Medical History: see triage record Last Menstrual Period: 10/20/2017 Now: No Reviewed Nursing Documentation: PMH: Agreed; PSxH: Agreed Review of Systems All Other Systems: negative except mentioned in HPI Physical Exam Vital Signs Date Time Temp Pulse Resp B/P (MAP) Pulse Ox O2 Delivery O2 Flow Rate FiO2 11/11/17 19:30 98.7 104 20 132/73 95 Room Air 98.8 Sp02 EP Interpretation: reviewed, normal General Appearance: well appearing, no apparent distress, alert, GCS 15, non- toxic Head: normocephalic, atraumatic Eyes: bilateral eye normal inspection, bilateral eye PERRL, bilateral eye other - no injection, no crusting, no swelling of eyelids ENT: hearing grossly normal, normal pharynx, no angioedema, normal voice, uvula midline, moist mucus membranes Neck: full range of motion Respiratory: lungs clear, normal breath sounds, no rhonchi, no respiratory distress, no accessory muscle use, no wheezing, speaking full sentences Cardiovascular #1: regular rate, rhythm, no edema Gastrointestinal: non tender, soft, no mass, non-distended, no guarding, no rebound Genitourinary: no CVA tenderness Musculoskeletal: back normal, digits/nails normal, gait/station normal, normal range of motion, non-tender Neurologic: alert, oriented x3, responsive, motor strength/tone normal, sensory intact Psychiatric: mood/affect normal Skin: other - Three 1 cm areas of erythematous urticaria on left lower leg, no central clearing, no well-defined borders, no satellite lesions, no warmth to touch Medical Decision Making PA Attestation Dr. Kohli is my supervising Physician whom patient management has been discussed with. Diagnostic Impression: Primary Impression: Pruritus Additional Impression: Rash and other nonspecific skin eruption ER Course Pt. presents to the ED c/o Food allergy. Ddx considered but are not limited to food allergy, rash, cellulitis, conjunctivitis, anaphylaxis. Vital signs: are WNL, pt. is afebrile See nurses note for [facility], followup with optometry. ER COURSE: no tongue swelling, no no fever, no vomiting, no wheezes on auscultation, lungs clear to auscultation, no face swelling, low suspicion for anaphylaxis. PERRLA, no conjunctival injection, no draining, no crusting, low suspicion for bacterial conjunctivitis, will provide antihistamine eyedrops. Followup with student records specialist. 3 small area of erythematous urticaria noted on lower leg, apply hydrocortisone cream to affected area, do not apply to face or skin creases. No red streaking. No rash on remainder of body. Chief patient follow up outpatient for allergy testing. Does not require inpatient labs treatment at this time. Continued take Benadryl for itching symptoms. Will provide medrol dose pack for itching symptoms. patient resting comfortably distress, nontoxic appearing, afebrile, non- tachycardic, does not require inpatient labs at this time, okay for outpatient follow-up. ER precautions given. DISCHARGE: Rx provided for Medrol Dosepak Rx provided for hydrocortisone Rx provided for Opcon-A for eye symptoms. At this time pt is stable for d/c to home. Patient is resting comfortably, in no acute distress, nontoxic appearing, talking without difficulty. Patient to take medications as instructed Will provide with patient care instructions and any necessary prescriptions. Care plan and follow-up instructions provided. Patient instructed to follow-up with primary care provider in 3 - 5 days. Patient questions asked and answered. Patient reports understanding and agreement to treatment plan. ER precautions given. Patient instructed to return to ER immediately for any new or worsening of symptoms including but not limited to increasing SOB, persistent fever, chest pain, intractable vomiting. - Please note that this Emergency Department Report was dictated using EVERFANStranscription typist technology software, occasionally this can lead to erroneous entry secondary to interpretation by the dictation equipment. Last Vital Signs Date Time Temp Pulse Resp B/P (MAP) Pulse Ox O2 Delivery O2 Flow Rate FiO2 11/11/17 19:39 98.8 78 20 132/73 95 Room Air 98.8 Disposition: HOME, SELF-CARE Condition: Stable Scripts Methylprednisolone* (MEDROL*) 4 Mg Tablet 4 MG ORAL DAILY, #10 TAB 0 Refills Prov: Michael Guzman 11/11/17 Hydrocortisone (Hydrocortisone Cream 2.5%) Y Cream.appl 1 APPLIC TP BID, #28 GM Prov: Michael Guzman 11/11/17 Naphazoline Hcl/Pheniramine (OPCON-A EYE DROPS) 15 Ml Drops 2 DROP OP BID, #15 ML Prov: Michael Guzman 11/11/17 Patient Instructions: Food Allergy, [id number]-[id number], Pruritus, Rash, Cilj-[id number] Additional Instructions: Followup with primary care provider in 3 -5 days. Request referral to allergy specialists for allergen testing. Discuss further treatment and referral as needed. Do not scratch or itch. Apply cool compresses to affected area. Take medications as directed. Do not apply hydrocortisone to face or skin creases. SE Benadryl drowsiness, do not take prior to drinking, driving, operating heavy machinery. Patient questions asked and answered. ER precautions given, patient instructed to return to ER immediately for any new or worsening of symptoms. Michael Guzman Nov 11, 2017 19:58
[2017-11-11 20:03] VITALS: BP 127/69
== END 2017-11-11 20:03 | disposition home or self-care (01) ==
LOC: EMR 19:53
DX: L29.9 Pruritus, unspecified (principal); R21 Rash and other nonspecific skin eruption
CPT/HCPCS: 99283

== ENCOUNTER 2017-12-29 11:43 | Emergency (ER) | payer MEDICAID ==
[~2017-12-29] VITALS: Ht 152.4 cm; Wt 101.2 kg
[~2017-12-29 11:43] MED LIST changes: +HYDROCORTISONE30 G2 TP; +MEDROL4 MG ORAL; +OPCON-A EYE DRO15 ML OP
[2017-12-29 12:12] VITALS: BP 118/85
[2017-12-29] MEDS ORDERED: LORazepam 0.5mg tab ORAL ONE (12:15)
--- NOTE | 2017-12-29 12:28 | Emergency Room Report ---
History of Present Illness General Chief Complaint: Behavioral Complaint Source: Patient Present Illness HPI 32-year-old female patient presents ER complaining of anxiety with past few days. Reports history of anxiety. Reports being seen by a psychiatrist,'s last seen last week, states she has another appointment with her psychiatrist this . Reports history of schizophrenia, reports hearing voices, denies thoughts of hurting herself or others. Reports she cannot ER today after leaving work due to anxiety symptoms. Denies thoughts of hurting herself or others. Denies fever, chest pain, shortness of breath. Denies drinking or drug use. Allergies: Coded Allergies: No Known Allergies (Unverified , 08/07/16) Patient History Past Medical History: see triage record Last Menstrual Period: last month Now: No Reviewed Nursing Documentation: PMH: Agreed; PSxH: Agreed Nursing Documentation-PMH Past Medical History: No History, Except For History Of Psychiatric Problem: Yes - schizophrenia, depression, anxiety Review of Systems All Other Systems: negative except mentioned in HPI Physical Exam Vital Signs Date Time Temp Pulse Resp B/P (MAP) Pulse Ox O2 Delivery O2 Flow Rate FiO2 12/29/17 11:57 98.6 103 20 118/85 98 98.6 Sp02 EP Interpretation: reviewed, normal General Appearance: well appearing, no apparent distress, alert, GCS 15, non- toxic Head: normocephalic, atraumatic Eyes: bilateral eye normal inspection, bilateral eye PERRL ENT: hearing grossly normal, normal pharynx, no angioedema, normal voice, uvula midline, moist mucus membranes Neck: full range of motion Respiratory: lungs clear, normal breath sounds, no rhonchi, no respiratory distress, no accessory muscle use, no wheezing, speaking full sentences Cardiovascular #1: regular rate, rhythm, no edema Musculoskeletal: back normal, digits/nails normal, gait/station normal, normal range of motion, non-tender Neurologic: alert, oriented x3, responsive, motor strength/tone normal, sensory intact Psychiatric: mood/affect normal, no suicidal/homicidal ideation Skin: no rash Medical Decision Making PA Attestation Dr. Diaz is my supervising Physician whom patient management has been discussed with. Diagnostic Impression: Primary Impression: Anxiety ER Course Pt. presents to the ED c/o anxiety. Ddx considered but are not limited to anxiety, depression, drug use, alcohol use , behavioral disorder. Vital signs: are WNL, pt. is afebrile Ordered urine , urine drug screen, ativan. ER COURSE: physical exam benign, no focal deficits cranial nerves and sensory, lungs sounds clear to auscultation. Patient denies SI or HI, appears to be trustworthy and has good follow-up for symptoms. Will provided patient with Ativan for anxiety symptoms. urine drug screen negative. Urine negative results discussed with patient. For patient will not be able to provide her with prescription to go home, prescription for anxiety medication recently provided by her mental health professional. Follow up at scheduled appointment. Provided with contact information for mental health urgent care if unable to contact mental health professional, follow-up at urgent care. ER precautions given. Patient reports feeling better, eating food all sitting in a chair, nontoxic appearing, okay for discharge to home. DISCHARGE: At this time pt is stable for d/c to home. Patient is resting comfortably, in no acute distress, nontoxic appearing, talking without difficulty. Patient to take medications as instructed Will provide with patient care instructions and any necessary prescriptions. Care plan and follow-up instructions provided. Patient instructed to follow-up with primary care provider in 3 - 5 days. Patient questions asked and answered. Patient reports understanding and agreement to treatment plan. ER precautions given. Patient instructed to return to ER immediately for any new or worsening of symptoms including but not limited to increasing SOB, persistent fever. - Please note that this Emergency Department Report was dictated using [employer]certified medical transcriptionist technology software, occasionally this can lead to erroneous entry secondary to interpretation by the dictation equipment. Labs Test 12/29/17 12:17 Urine HCG, Qualitative Negative (NEGATIVE) Urine Opiates Screen Negative (NEGATIVE) Urine Barbiturates Screen Negative (NEGATIVE) Phencyclidine (PCP) Screen Negative (NEGATIVE) Urine Amphetamines Screen Negative (NEGATIVE) Urine Benzodiazepines Screen Negative (NEGATIVE) Urine Cocaine Screen Negative (NEGATIVE) Urine Marijuana (THC) Screen Negative (NEGATIVE) Last Vital Signs Date Time Temp Pulse Resp B/P (MAP) Pulse Ox O2 Delivery O2 Flow Rate FiO2 12/29/17 12:12 98.6 20 118/85 98 98.6 12/29/17 11:57 103 Status: improved Disposition: HOME, SELF-CARE Condition: Stable Referrals: [facility],REFERRING (PCP) Patient Instructions: Generalized Anxiety Disorder Additional Instructions: Follow-up with mental health professional scheduled appointment. If symptoms worsen follow-up with mental health urgent care, contact information provided. Followup with primary care provider in 3 -5 days. Take medications as directed. Patient questions asked and answered. ER precautions given, patient instructed to return to ER immediately for any new or worsening of symptoms. Michael Guzman Dec 29, 2017 12:28
[2017-12-29 14:55] VITALS: BP 118/85
== END 2017-12-29 14:56 | disposition home or self-care (01) ==
LOC: EMR 12:25
DX: F41.9 Anxiety disorder, unspecified (principal); F20.9 Schizophrenia, unspecified; F32.9 Major depressive disorder, single episode, unspecified
CPT/HCPCS: 80307; 81025; 99284

== ENCOUNTER 2018-02-03 16:46 | Emergency (ER) | payer MEDICAID ==
[~2018-02-03] VITALS: Ht 167.6 cm; Wt 102.1 kg
[2018-02-03] MEDS ORDERED: LAMICTAL25 MG ORAL (16:57)
[2018-02-03] MEDS ORDERED: ZYPREXA10 MG ORAL (16:58)
[2018-02-03] MEDS ORDERED: ABILIFY10 MG ORAL (16:58)
[2018-02-03] MEDS ORDERED: ATIVAN1 MG ORAL (16:58)
[2018-02-03] MEDS ORDERED: PRISTIQ ER100 MG PO (16:58)
[2018-02-03] MEDS ORDERED: Isovue-300 100ml vial INJ PRN (18:00)
--- NOTE | 2018-02-03 18:05 | Emergency Room Report ---
History of Present Illness General Chief Complaint: Vomiting Present Illness HPI 32-year-old female presents to the emergency department complaining of 10 out of 10 in severity pain primarily in the right lower quadrant 2 days. Patient reports 6-7 episodes of vomiting bile and recently eating food. Patient eyes blood vomit she denies bloody stools or black tarry stools. Patient reports several episodes of diarrhea. She denies fevers, chills or recent travel. Patient reports weakness and fatigue. Denies , denies dysuria, hematuria or urinary frequency. Allergies: Coded Allergies: No Known Allergies (Unverified , 08/07/16) Patient History Past Surgical History: unable to obtain Pertinent Family History: none Last Menstrual Period: 11/2017 Reviewed Nursing Documentation: PMH: Agreed; PSxH: Agreed Nursing Documentation-PMH Past Medical History: No History, Except For History Of Psychiatric Problem: Yes - Schizophrenia, depression, anxiety Review of Systems All Other Systems: negative except mentioned in HPI Physical Exam Vital Signs Date Time Temp Pulse Resp B/P (MAP) Pulse Ox O2 Delivery O2 Flow Rate FiO2 02/03/18 16:51 98.8 114 18 110/77 94 Room Air Sp02 EP Interpretation: reviewed, normal General Appearance: alert, GCS 15, non-toxic, mild distress Head: normocephalic, atraumatic Eyes: bilateral eye normal inspection, bilateral eye PERRL ENT: hearing grossly normal, normal voice Neck: full range of motion Respiratory: lungs clear, normal breath sounds, speaking full sentences Cardiovascular #1: regular rate, rhythm, tachycardia Gastrointestinal: normal bowel sounds, soft, no guarding, tenderness - RLQ, and some RQU. Genitourinary: normal inspection, no CVA tenderness Musculoskeletal: back normal, gait/station normal, normal range of motion, non- tender Neurologic: alert, oriented x3, responsive, motor strength/tone normal, sensory intact, speech normal, grossly normal Psychiatric: judgement/insight normal Skin: normal color, no rash, warm/dry, well hydrated Medical Decision Making PA Attestation Dr. Hancock is my supervising Physician whom patient management has been discussed with. Diagnostic Impression: Primary Impression: UTI (urinary tract infection) Qualified Codes: N30.01 - Acute cystitis with hematuria Additional Impression: Vomiting Qualified Codes: R11.2 - Nausea with vomiting, unspecified ER Course 32-year-old female presents to the emergency department complaining of 10 out of 10 in severity pain primarily in the right lower quadrant 2 days. Patient reports 6-7 episodes of vomiting bile and recently eating food. Patient eyes blood vomit she denies bloody stools or black tarry stools. Patient reports several episodes of diarrhea. She denies fevers, chills or recent travel. Patient reports weakness and fatigue. Denies , denies dysuria, hematuria or urinary frequency. Ddx considered but are not limited to Diverticulitis, acute appy, diarrhea,UC, PUD, GE, pancreatitis, gallstone, ovarian torsion, ectopic , PID tubo-ovarian abscess. Vital signs: Tachycardic, pt. is afebrile H&PE are most consistent with gastritis and possible appendicitis based on RLQ pain ORDERS: -CBC, CMP, LIPASE:Unremarkable -UA: elevated leuks and bacteria= UTI -URINE HCG: Negative -CT ABDOMEN AND PELVIS WITH CONTRAST: Noted some fatty of infiltrate of the liver otherwise unremarkable--Per official radiology report- Please see report for specific details. ED INTERVENTIONS: -PO zofran 4mg -1000cc NS Bolus - reglan IV DISCHARGE: At this time pt. is stable for d/c to home. Will provide printed patient care instructions, and any necessary prescriptions. Care plan and follow up instructions have been discussed with the patient prior to discharge. Labs Test 02/03/18 17:55 White Blood Count 10.2 K/UL (4.8-10.8) Red Blood Count 4.95 M/UL (4.20-5.40) Hemoglobin 13.8 G/DL (12.0-16.0) Hematocrit 40.3 % (37.0-47.0) Mean Corpuscular Volume 81 FL (80-99) Mean Corpuscular Hemoglobin 27.9 PG (27.0-31.0) Mean Corpuscular Hemoglobin Concent 34.3 G/DL (32.0-36.0) Red Cell Distribution Width 12.4 % (11.6-14.8) Platelet Count 263 K/UL (150-450) Mean Platelet Volume 6.2 FL (6.5-10.1) Neutrophils (%) (Auto) 51.7 % (45.0-75.0) Lymphocytes (%) (Auto) 37.0 % (20.0-45.0) Monocytes (%) (Auto) 6.1 % (1.0-10.0) Eosinophils (%) (Auto) 3.2 % (0.0-3.0) Basophils (%) (Auto) 2.0 % (0.0-2.0) Urine Color Pale yellow Urine Appearance Slightly cloudy Urine pH 8 (4.5-8.0) Urine Specific [place] 1.015 (1.005-1.035) Urine Protein Negative (NEGATIVE) Urine Glucose (UA) Negative (NEGATIVE) Urine Ketones Negative (NEGATIVE) Urine Blood 1+ (NEGATIVE) Urine Nitrite Negative (NEGATIVE) Urine Bilirubin Negative (NEGATIVE) Urine Urobilinogen Normal MG/DL (0.0-1.0) Urine Leukocyte Esterase 2+ (NEGATIVE) Urine RBC 2-4 /HPF (0 - 2) Urine WBC 0-2 /HPF (0 - 2) Urine Squamous Epithelial Cells Few /LPF (NONE/OCC) Urine Amorphous Sediment Moderate /LPF (NONE) Urine Bacteria Moderate /HPF (NONE) Urine HCG, Qualitative Negative (NEGATIVE) Sodium Level 138 MMOL/L (136-145) Potassium Level 3.7 MMOL/L (3.5-5.1) Chloride Level 103 MMOL/L (98-107) Carbon Dioxide Level 25 MMOL/L (21-32) Anion Gap 10 mmol/L (5-15) Blood Urea Nitrogen 13 mg/dL (7-18) Creatinine 1.0 MG/DL (0.55-1.30) Estimat Glomerular Filtration Rate > 60 mL/min (>60) Glucose Level 113 MG/DL (74-106) Calcium Level 8.7 MG/DL (8.5-10.1) Total Bilirubin 0.3 MG/DL (0.2-1.0) Aspartate Amino Transf (AST/SGOT) 20 U/L (15-37) Alanine Aminotransferase (ALT/SGPT) 52 U/L (12-78) Alkaline Phosphatase 104 U/L (46-116) Total Protein 8.1 G/DL (6.4-8.2) Albumin 3.7 G/DL (3.4-5.0) Globulin 4.4 g/dL Albumin/Globulin Ratio 0.8 (1.0-2.7) Lipase 101 U/L (73-393) CT/MRI/US Diagnostic Results CT/MRI/US Diagnostic Results : Imaging Test Ordered: Ct ABDOMEN AND PELVIS WITH CONTRAST Impression Noted some fatty infiltrate of the liver otherwise unremarkable---Per official radiology report- Please see report for specific details. Last Vital Signs Date Time Temp Pulse Resp B/P (MAP) Pulse Ox O2 Delivery O2 Flow Rate FiO2 02/03/18 17:15 108 18 Room Air 02/03/18 16:51 98.8 110/77 94 Disposition: HOME, SELF-CARE Condition: Stable Scripts Nitrofurantoin Monohyd/M-Cryst* (MACROBID 100 MG*) 100 Mg Capsule 100 MG ORAL EVERY 12 HOURS for 5 Days, #10 CAP Prov: Dali Aleman 02/03/18 Promethazine Hcl* (PHENERGAN*) 25 Mg Tablet 25 MG ORAL Q6H, #15 TAB 0 Refills Prov: Dali Aleman 02/03/18 Departure Forms: Return to Work Return to Work Date: Feb 05, 2018 Work Restrictions: None Return to Full Activity: Feb 05, 2018 Patient Instructions: Nausea and Vomiting, Adult, Urinary Tract Infection, Easy -to-Read Additional Instructions: Take medications as directed. Follow up with a Primary Care Provider in 3-5 days, even if your symptoms have resolved. --Please review list of primary care clinics, if you do not already have a primary care provider Return sooner to ED if new symptoms occur, or current symptoms become worse. - Please note that this Emergency Department Report was dictated using [employer] bulk system technology software, occasionally this can lead to erroneous entry secondary to interpretation by the dictation equipment. Dali Aleman Feb 03, 2018 18:05
[2018-02-03 18:07] LABS: APPEARANCE,URINE SLIGHTLY CLOUDY; BILIRUBIN, URINE NEGATIVE (NEGATIVE); COLOR,URINE PALE YELLOW; GLUCOSE, URINE (UA) NEGATIVE (NEGATIVE); KETONES,URINE NEGATIVE (NEGATIVE); LEUKOCYTE ESTERASE ,URINE 2+ (NEGATIVE); NITRITE,URINE NEGATIVE (NEGATIVE); PH,URINE 8 (4.5-8.0); PROTEIN,URINE NEGATIVE (NEGATIVE); UROBILINOGEN,URINE NORMAL MG/DL (0.0-1.0)
[2018-02-03 18:08] LABS: EOSINOPHILS % (AUTO) 3.2 % (0.0-3.0); HEMATOCRIT 40.3 % (37.0-47.0); HEMOGLOBIN 13.8 G/DL (12.0-16.0); MEAN CORPUSCULAR VOLUME 81 FL (80-99); MONOCYTES % (AUTO) 6.1 % (1.0-10.0); NEUTROPHILS % (AUTO) 51.7 % (45.0-75.0); PLATELET COUNT 263 K/UL (150-450); RED BLOOD COUNT 4.95 M/UL (4.20-5.40); RED CELL DISTRIBUTION WIDTH 12.4 % (11.6-14.8); WHITE BLOOD COUNT 10.2 K/UL (4.8-10.8)
[2018-02-03 18:14] VITALS: BP 114/79
[2018-02-03 18:25] LABS: ANION GAP 10 mmol/L (5-15); BLOOD UREA NITROGEN 13 mg/dL (7-18); CALCIUM 8.7 MG/DL (8.5-10.1); CARBON DIOXIDE 25 MMOL/L (21-32); CHLORIDE 103 MMOL/L (98-107); POTASSIUM 3.7 MMOL/L (3.5-5.1); SODIUM 138 MMOL/L (136-145)
[2018-02-03 18:29] LABS: ALANINE AMINOTRANSFERASE 52 U/L (12-78); ALBUMIN 3.7 G/DL (3.4-5.0); ALBUMIN/GLOBULIN RATIO 0.8 (1.0-2.7); ALKALINE PHOSPHATASE 104 U/L (46-116); ASPARTATE AMINO TRANSFERASE 20 U/L (15-37); BILIRUBIN,TOTAL 0.3 MG/DL (0.2-1.0)
[2018-02-03] MEDS ORDERED: Metoclopramide 10mg/2ml Inj IVP ONE (20:45)
[2018-02-03] MEDS ORDERED: PHENERGAN25 M1 ORAL (21:56)
[2018-02-03] MEDS ORDERED: NITROFURANTOIN100 M2 ORAL (21:56)
[2018-02-03 22:05] VITALS: BP 114/79
--- NOTE | 2018-02-04 09:34 | Diagnostic Imaging Report ---
Indication: Abdominal pain Technique: Continuous helical transaxial imaging of the abdomen and pelvis was obtained from the lung bases to the pubic symphysis during intravenous contrast administration. Coronal 2-D reformats were also obtained. Study obtained in a Siemens sensation [address] Automatic Exposure Control was utilized. Total Dose length Product (DLP): [address] Dose Index Volume (CTDIvol): 18.16 mGy Comparison: None Findings: The lung bases are clear. The liver is hypodense consistent with fatty infiltration. The spleen is borderline enlarged. Pancreas is unremarkable. Adrenal glands are unremarkable. Kidneys show no obvious automatic. No nephrolithiasis identified. No hydronephrosis seen. No evidence of bowel obstruction. The appendix is normal. Uterus is present. IMPRESSION: Fatty liver. Borderline splenomegaly The CT scanner at [facility] is accredited by the [employer] and the scans are performed using dose optimization techniques as appropriate to a performed exam including Automatic Exposure control.
== END 2018-02-03 22:20 | disposition home or self-care (01) ==
LOC: EMR 18:04
DX: N39.0 Urinary tract infection, site not specified (principal); R11.10 Vomiting, unspecified; R19.7 Diarrhea, unspecified
CPT/HCPCS: 36415; 74177; 80053; 80307; 81003; 81025; 83690; 85025; 87086; 96361; 96374; 96375; 99284; J2405; J2765; Q9967; S0028

== ENCOUNTER 2018-06-24 18:29 | Emergency (ER) | payer MEDICAID ==
[~2018-06-24] VITALS: Ht 167.6 cm; Wt 102.1 kg
[~2018-06-24 18:29] MED LIST changes: +ATIVAN1 MG ORAL; +LAMICTAL25 MG ORAL; +PHENERGAN25 M1 ORAL; +PRISTIQ ER100 MG PO; +ZYPREXA10 MG ORAL
[2018-06-24 18:37] VITALS: BP 111/74
--- NOTE | 2018-06-24 19:11 | Emergency Room Report ---
History of Present Illness General Chief Complaint: Flu Like Symptoms Source: Patient Present Illness HPI 32-year-old female patient complaining of vomiting for the past 3 days. Reports vomiting occurs after eating. Denies abdominal pain. Denies hematemesis. Denies coffee-ground emesis. Reports vomiting up the food that she eats. Denies diarrhea. Denies recent travel outside the country. Also complaining of cough earache and headache. Reports headache symptoms began after cough and vomiting symptoms. Reports frontal headache. Denies neck pain. Reports cough with sputum. Denies hemoptysis. Denies chest pain or shortness of breath. Denies fever. Reports took Tylenol once yesterday for relief of symptoms however did not work. Denies other aggravating or relieving factors. Allergies: Coded Allergies: No Known Allergies (Unverified , 08/07/16) Patient History Past Medical History: see triage record Last Menstrual Period: last week Now: No Reviewed Nursing Documentation: PMH: Agreed; PSxH: Agreed Nursing Documentation-PMH Past Medical History: No History, Except For History Of Psychiatric Problem: Yes - depresion, schizophrenia Review of Systems All Other Systems: negative except mentioned in HPI Physical Exam Vital Signs Date Time Temp Pulse Resp B/P (MAP) Pulse Ox O2 Delivery O2 Flow Rate FiO2 06/24/18 18:37 99.0 103 20 111/74 95 Room Air Sp02 EP Interpretation: reviewed, normal General Appearance: well appearing, no apparent distress, alert, GCS 15, non- toxic Head: normocephalic, atraumatic, other - Frontal sinus tenderness palpation bilaterally Eyes: bilateral eye normal inspection, bilateral eye PERRL ENT: hearing grossly normal, normal pharynx, no angioedema, normal voice, TMs + canals normal, uvula midline, moist mucus membranes Neck: full range of motion, no meningismus, no bony tend Respiratory: lungs clear, normal breath sounds, no rhonchi, no respiratory distress, no accessory muscle use, no wheezing, speaking full sentences Cardiovascular #1: regular rate, rhythm, no edema, normal capillary refill Gastrointestinal: non tender, soft, no mass, non-distended, no guarding, no rebound, other - Negative Rovsing, negative obturator, negative Edwards Genitourinary: no CVA tenderness Musculoskeletal: back normal, digits/nails normal, gait/station normal, normal range of motion, non-tender Neurologic: alert, oriented x3, responsive, walking dragline oiler III-XII nml as tested, motor strength/tone normal, sensory intact, other - Negative Kernig, negative Brudzinski Psychiatric: mood/affect normal Skin: no rash Medical Decision Making PA Attestation Dr. Kohli is my supervising Physician whom patient management has been discussed with. Diagnostic Impression: Primary Impression: Sinusitis Additional Impressions: Vomiting Urinary tract infection Upper respiratory tract infection ER Course Pt. presents to the ED c/o vomiting, cough, congestion, earache. Ddx considered but are not limited to gastritis, viral syndrome, food poisoning , viral URI, meningitis, sinusitis, cholecystitis, cholelithiasis, otitis media , otitis externa. Patient afebrile, negative Kernig, negative Brudzinski, low suspicion for meningitis. Vital signs: are WNL, pt. is afebrile ER COURSE: Provide with Zofran medication in the ER. Provide with IV fluids. CBC and CMP unremarkable, no elevation WBCs or LFTs, lipase within normal limits UA shows elevated bacteria and WBCs, will provide patient with antibiotics to treat for likely UTI. Frontal sinuses tender to palpation, likely sinusitis will provide patient with medication. Due to lack of fever and short duration of symptoms, likely viral in nature, does not require antibiotics. Follow-up with ENT specialist. Patient tolerating p.o. fluids and food in the ER without throwing up. Patient reports feeling better following administration of medication. Patient able to tolerate PO fluids at this time. Patient does not require abx at this time; afebrile, no recent travel, no blood in stool. Return to ER if symptoms persist. Drink fluids as tolerated to prevent dehydration. ER precautions given. DISCHARGE At this time pt is stable for d/c to home. Patient is resting comfortably, in no acute distress, nontoxic appearing, talking without difficulty. Patient to take medications as instructed Will provide with patient care instructions and any necessary prescriptions. Care plan and follow-up instructions provided. Patient instructed to follow-up with primary care provider in 3 - 5 days. Patient questions asked and answered. Patient reports understanding and agreement to treatment plan.ER precautions given. Patient instructed to return to ER immediately for any new or worsening of symptoms including but not limited to increasing SOB, persistent fever, intractable vomiting. - Please note that this Emergency Department Report was dictated using [employer] sampler technology software, occasionally this can lead to erroneous entry secondary to interpretation by the dictation equipment. Labs Test 06/24/18 19:13 White Blood Count 10.3 K/UL (4.8-10.8) Red Blood Count 5.08 M/UL (4.20-5.40) Hemoglobin 13.7 G/DL (12.0-16.0) Hematocrit 41.4 % (37.0-47.0) Mean Corpuscular Volume 82 FL (80-99) Mean Corpuscular Hemoglobin 27.0 PG (27.0-31.0) Mean Corpuscular Hemoglobin Concent 33.1 G/DL (32.0-36.0) Red Cell Distribution Width 12.7 % (11.6-14.8) Platelet Count 283 K/UL (150-450) Mean Platelet Volume 6.0 FL (6.5-10.1) Neutrophils (%) (Auto) 51.0 % (45.0-75.0) Lymphocytes (%) (Auto) 36.8 % (20.0-45.0) Monocytes (%) (Auto) 7.2 % (1.0-10.0) Eosinophils (%) (Auto) 3.1 % (0.0-3.0) Basophils (%) (Auto) 2.0 % (0.0-2.0) Urine Color Yellow Urine Appearance Clear Urine pH 7 (4.5-8.0) Urine Specific [place] 1.010 (1.005-1.035) Urine Protein Negative (NEGATIVE) Urine Glucose (UA) Negative (NEGATIVE) Urine Ketones Negative (NEGATIVE) Urine Blood 1+ (NEGATIVE) Urine Nitrite Negative (NEGATIVE) Urine Bilirubin Negative (NEGATIVE) Urine Urobilinogen Normal MG/DL (0.0-1.0) Urine Leukocyte Esterase 2+ (NEGATIVE) Urine RBC 0-2 /HPF (0 - 2) Urine WBC 5-10 /HPF (0 - 2) Urine Squamous Epithelial Cells Moderate /LPF (NONE/OCC) Urine Bacteria Moderate /HPF (NONE) Urine HCG, Qualitative Negative (NEGATIVE) Sodium Level 141 MMOL/L (136-145) Potassium Level 3.8 MMOL/L (3.5-5.1) Chloride Level 103 MMOL/L (98-107) Carbon Dioxide Level 27 MMOL/L (21-32) Anion Gap 11 mmol/L (5-15) Blood Urea Nitrogen 14 mg/dL (7-18) Creatinine 1.0 MG/DL (0.55-1.30) Estimat Glomerular Filtration Rate > 60 mL/min (>60) Glucose Level 75 MG/DL (74-106) Calcium Level 8.9 MG/DL (8.5-10.1) Total Bilirubin 0.3 MG/DL (0.2-1.0) Aspartate Amino Transf (AST/SGOT) 13 U/L (15-37) Alanine Aminotransferase (ALT/SGPT) 32 U/L (12-78) Alkaline Phosphatase 94 U/L (46-116) Total Protein 7.9 G/DL (6.4-8.2) Albumin 4.2 G/DL (3.4-5.0) Globulin 3.7 g/dL Albumin/Globulin Ratio 1.1 (1.0-2.7) Lipase 92 U/L (73-393) Last Vital Signs Date Time Temp Pulse Resp B/P (MAP) Pulse Ox O2 Delivery O2 Flow Rate FiO2 06/24/18 18:37 99.0 103 20 111/74 95 Room Air Status: improved Disposition: HOME, SELF-CARE Condition: Stable Scripts Fluticasone Propionate* (FLUTICASONE PROPIONATE*) 16 Gm [place].susp 2 SPRAY NASAL DAILY for 3 Days, #16 GM Prov: Michael [email or web address] 06/24/18 Guaifen/Phenyleph/Acetaminophn (Sudafed PE Pressure+Pain+Mucus) 1 Each Tablet 1 EACH PO BID, #24 TAB Prov: Michael [email or web address] 06/24/18 Benzonatate* (TESSALON PERLE*) 100 Mg Capsule 100 MG ORAL THREE TIMES A DAY, #30 PERLE Prov: Michael [email or web address] 06/24/18 Ibuprofen* (MOTRIN*) 600 Mg Tablet 600 MG ORAL Q8H PRN for For Pain, #30 TAB 0 Refills Prov: Michael [email or web address].ADarci 06/24/18 Cephalexin* (KEFLEX*) 500 Mg Capsule 500 MG ORAL EVERY 12 HOURS, #14 CAP 0 Refills Prov: Michael [email or web address].ADarci 3/27/19 Patient Instructions: Nausea and Vomiting, Adult, [id number], Sinusitis, Adult, [id number], Urinary Tract Infection, [id number] Additional Instructions: Followup with primary care provider in 3 -5 days. Drink plenty of fluids. Follow-up with [facility] specialist. Follow-up with GI specialist. Take medications as directed. Patient questions asked and answered. ER precautions given, patient instructed to return to ER immediately for any new or worsening of symptoms. Michael Guzman Jun 24, 2018 19:11
[2018-06-24] MEDS ORDERED: Benzonatate 100mg Perles ORAL ONE (19:15)
[2018-06-24 19:30] LABS: EOSINOPHILS % (AUTO) 3.1 % (0.0-3.0); HEMATOCRIT 41.4 % (37.0-47.0); HEMOGLOBIN 13.7 G/DL (12.0-16.0); LYMPHOCYTES % (AUTO) 36.8 % (20.0-45.0); MEAN CORPUSCULAR VOLUME 82 FL (80-99); MONOCYTES % (AUTO) 7.2 % (1.0-10.0); PLATELET COUNT 283 K/UL (150-450); RED BLOOD COUNT 5.08 M/UL (4.20-5.40); RED CELL DISTRIBUTION WIDTH 12.7 % (11.6-14.8); WHITE BLOOD COUNT 10.3 K/UL (4.8-10.8)
[2018-06-24 19:34] LABS: APPEARANCE,URINE CLEAR; BILIRUBIN, URINE NEGATIVE (NEGATIVE); GLUCOSE, URINE (UA) NEGATIVE (NEGATIVE); KETONES,URINE NEGATIVE (NEGATIVE); LEUKOCYTE ESTERASE ,URINE 2+ (NEGATIVE); NITRITE,URINE NEGATIVE (NEGATIVE); PH,URINE 7 (4.5-8.0); PROTEIN,URINE NEGATIVE (NEGATIVE); UROBILINOGEN,URINE NORMAL MG/DL (0.0-1.0)
[2018-06-24 19:36] LABS: COLOR,URINE YELLOW
[2018-06-24 19:45] LABS: ANION GAP 11 mmol/L (5-15); BLOOD UREA NITROGEN 14 mg/dL (7-18); CALCIUM 8.9 MG/DL (8.5-10.1); CARBON DIOXIDE 27 MMOL/L (21-32); CHLORIDE 103 MMOL/L (98-107); POTASSIUM 3.8 MMOL/L (3.5-5.1); SODIUM 141 MMOL/L (136-145)
[2018-06-24 19:49] LABS: ALANINE AMINOTRANSFERASE 32 U/L (12-78); ALBUMIN 4.2 G/DL (3.4-5.0); ALBUMIN/GLOBULIN RATIO 1.1 (1.0-2.7); ALKALINE PHOSPHATASE 94 U/L (46-116); ASPARTATE AMINO TRANSFERASE 13 U/L (15-37); BILIRUBIN,TOTAL 0.3 MG/DL (0.2-1.0)
[2018-06-24] MEDS ORDERED: CEPHALEXIN500 MG ORAL (20:05)
[2018-06-24] MEDS ORDERED: SUDAFED PE PRE1 EAC3 PO (20:05)
[2018-06-24] MEDS ORDERED: IBUPROFEN600 MG ORAL (20:05)
[2018-06-24] MEDS ORDERED: TESSALON PERLE100 MG ORAL (20:05)
[2018-06-24] MEDS ORDERED: FLUTICASONE PRO16 G1 NASAL (20:05)
[2018-06-24 20:10] VITALS: BP 111/74
== END 2018-06-24 20:15 | disposition home or self-care (01) ==
LOC: EMR 19:22
DX: J32.9 Chronic sinusitis, unspecified (principal); N39.0 Urinary tract infection, site not specified; J06.9 Acute upper respiratory infection, unspecified; R11.10 Vomiting, unspecified; F32.9 Major depressive disorder, single episode, unspecified; F20.9 Schizophrenia, unspecified
CPT/HCPCS: 36415; 80053; 81003; 81025; 83690; 85025; 87086; 96361; 96374; 99284; J2405

== ENCOUNTER 2018-07-15 21:00 | Emergency (ER) | payer MEDICAID ==
[~2018-07-15] VITALS: Ht 167.6 cm; Wt 104.3 kg
[~2018-07-15 21:00] MED LIST changes: +CEPHALEXIN500 MG ORAL; +FLUTICASONE PRO16 G1 NASAL; +SUDAFED PE PRE1 EAC3 PO
--- NOTE | 2018-07-15 21:35 | NUR ---
ED Nurse Note: Pt's ring stuck on her L ring finger for 4 days.
[2018-07-15 21:42] VITALS: BP 132/80
[2018-07-15 21:51] VITALS: BP 132/80
--- NOTE | 2018-07-15 21:52 | NUR ---
ER DISCHARGE NOTE: Patient is cleared to be discharged per ERMD, pt is aox4, on room air, with stable vital signs. pt was given dc instructions, pt was able to verbalize understanding, pt id band removed. pt is able to ambulate with steady gait. pt took all belongings.
--- NOTE | 2018-07-15 22:59 | Emergency Room Report ---
History of Present Illness General Chief Complaint: Wound Recheck/Suture Removal Source: Patient Present Illness HPI 32-year-old female presents ED with pain and swelling to her left ring finger. States that her ring has been stuck for the last 4 days. Pain is throbbing, 7 out of 10, nonradiating. Denies any fall or injury. No other aggravating relieving factors. Denies any other associated symptoms Allergies: Coded Allergies: No Known Allergies (Unverified , 08/07/16) Patient History Past Medical History: none Past Surgical History: none Pertinent Family History: none Social History: Denies: smoking, alcohol use, drug use Last Menstrual Period: Jun 25 2018 Now: No Immunizations: UTD Reviewed Nursing Documentation: PMH: Agreed; PSxH: Agreed Nursing Documentation-PMH Past Medical History: No Stated History Review of Systems All Other Systems: negative except mentioned in HPI Physical Exam Vital Signs Date Time Temp Pulse Resp B/P (MAP) Pulse Ox O2 Delivery O2 Flow Rate FiO2 07/15/18 21:31 98.8 105 18 132/80 98 Room Air Sp02 EP Interpretation: reviewed, normal General Appearance: no apparent distress, alert, GCS 15, non-toxic Head: normocephalic Eyes: bilateral eye normal inspection, bilateral eye PERRL ENT: normal ENT inspection Neck: normal inspection Respiratory: normal inspection Cardiovascular #1: normal inspection Gastrointestinal: normal inspection Rectal: deferred Genitourinary: no CVA tenderness Musculoskeletal: swelling - L index finger. Neurologic: alert, oriented x3, responsive, motor strength/tone normal, sensory intact, speech normal Psychiatric: normal inspection Skin: normal inspection Lymphatic: normal inspection Medical Decision Making Diagnostic Impression: Primary Impression: Ring or other jewelry causing external constriction, initial e... ER Course 32-year-old female presents ED with his ring stuck on the left ring finger Patient placed on stretcher. After initial history and physical we used ring cutter to cut the ring and effectively remove it. Patient tolerated procedure without complication. Discussed findings with patient. No further workup at this time. Safe for discharge close outpatient follow-up. States she has a PMD Diagnosisring or other jewelry causing external constriction Safe for discharge with close patient follow up Last Vital Signs Date Time Temp Pulse Resp B/P (MAP) Pulse Ox O2 Delivery O2 Flow Rate FiO2 07/15/18 21:51 98.8 105 18 132/80 98 Room Air Status: improved Disposition: HOME, SELF-CARE Condition: Stable Referrals: [facility]ERR[facility] (PCP) Patient Instructions: Finger Sprain, [id number] Usman Kohli MD Jul 15, 2018 22:59
== END 2018-07-15 22:00 | disposition home or self-care (01) ==
LOC: EMR 22:00
DX: S60.441A External constriction of left index finger, initial encounter (principal); W49.04XA Ring or other jewelry causing external constriction, initial encounter
CPT/HCPCS: 99282

== ENCOUNTER 2018-07-29 10:52 | Emergency (ER) | payer MEDICAID ==
[~2018-07-29] VITALS: Ht 167.6 cm; Wt 108.9 kg
[2018-07-29 11:04] VITALS: BP 130/86
--- NOTE | 2018-07-29 11:06 | NUR ---
ED Nurse Note: Patient walked in to ER c/o dizziness started yesterday and did not get better until now. pt aao x4 and ambulatory, skin clean and intact, calm and cooperative. per pt, she used to take medication for dizziness prescribed by her pcp but she ran out of medication and does not remember medication name.
--- NOTE | 2018-07-29 11:16 | NUR ---
ED Nurse Note: Patient called Dr. Last which is her primary doctor to ask what medication he has prescribed but doctors not in office and nurse will not release the information without speaking to doctor first.
--- NOTE | 2018-07-29 11:32 | NUR ---
ED Nurse Note: Urine and blood were obtained and sent to the lab.
[2018-07-29 11:52] LABS: APPEARANCE,URINE CLEAR; BASOPHILS % (AUTO) 1.7 % (0.0-2.0); BILIRUBIN, URINE NEGATIVE (NEGATIVE); COLOR,URINE PALE YELLOW; EOSINOPHILS % (AUTO) 5.6 % (0.0-3.0); GLUCOSE, URINE (UA) NEGATIVE (NEGATIVE); HEMATOCRIT 43.6 % (37.0-47.0); HEMOGLOBIN 14.6 G/DL (12.0-16.0); KETONES,URINE NEGATIVE (NEGATIVE); LEUKOCYTE ESTERASE ,URINE NEGATIVE (NEGATIVE); LYMPHOCYTES % (AUTO) 37.3 % (20.0-45.0); MEAN CORPUSCULAR VOLUME 82 FL (80-99); MONOCYTES % (AUTO) 5.8 % (1.0-10.0); NEUTROPHILS % (AUTO) 49.8 % (45.0-75.0); NITRITE,URINE NEGATIVE (NEGATIVE); PH,URINE 8 (4.5-8.0); PLATELET COUNT 296 K/UL (150-450); PROTEIN,URINE NEGATIVE (NEGATIVE); RED CELL DISTRIBUTION WIDTH 13.1 % (11.6-14.8); UROBILINOGEN,URINE NORMAL MG/DL (0.0-1.0); WHITE BLOOD COUNT 9.5 K/UL (4.8-10.8)
[2018-07-29 12:01] LABS: ANION GAP 8 mmol/L (5-15); BLOOD UREA NITROGEN 12 mg/dL (7-18); CALCIUM 8.4 MG/DL (8.5-10.1); CARBON DIOXIDE 27 MMOL/L (21-32); CHLORIDE 101 MMOL/L (98-107); CREATININE 0.8 MG/DL (0.55-1.30); POTASSIUM 3.9 MMOL/L (3.5-5.1); SODIUM 136 MMOL/L (136-145)
[2018-07-29] MEDS ORDERED: MECLIZINE HCL25 MG ORAL (12:05)
[2018-07-29 12:14] VITALS: BP 126/74
--- NOTE | 2018-07-29 12:16 | NUR ---
ER DISCHARGE NOTE: Patient is cleared to be discharged per ERMD, pt is aox4, on room air, with stable vital signs. pt was given dc and prescription instructions, pt was able to verbalize understanding, pt id band removed. pt is able to ambulate with steady gait. pt took all belongings.
--- NOTE | 2018-07-29 13:19 | Emergency Room Report ---
History of Present Illness General Chief Complaint: Dizziness Source: Patient Present Illness [facility] Patient present with complaints of dizziness off-and-on since yesterday Patient reports that she was at a grocery store when she started feeling the sensation Now feels that it's worse with standing or walking denies any headache denies any tinnitus Denies any focal weakness Denies any neck pain or photophobia denies any change in medications Patient reports that her family felt that it was likely anxiety Allergies: Coded Allergies: No Known Allergies (Unverified , 08/07/16) Patient History Past Medical History: see triage record Pertinent Family History: none Now: No Reviewed Nursing Documentation: PMH: Agreed; PSxH: Agreed Nursing Documentation-PMH Past Medical History: No History, Except For History Of Psychiatric Problem: Yes Review of Systems All Other Systems: negative except mentioned in HPI Physical Exam Vital Signs Date Time Temp Pulse Resp B/P (MAP) Pulse Ox O2 Delivery O2 Flow Rate FiO2 07/29/18 11:00 98.2 96 20 130/86 97 Room Air Sp02 EP Interpretation: reviewed, normal General Appearance: well appearing, no apparent distress Head: normocephalic, atraumatic Eyes: bilateral eye PERRL, bilateral eye EOMI ENT: hearing grossly normal, normal pharynx, TMs + canals normal, uvula midline Neck: full range of motion, supple, no meningismus, no bony tend Respiratory: lungs clear, normal breath sounds, no rhonchi, no respiratory distress, no retraction, no accessory muscle use Cardiovascular #1: normal peripheral pulses, regular rate, rhythm, no edema, no gallop, no JVD, no murmur Gastrointestinal: normal bowel sounds, non tender, soft, no mass, no organomegaly, non-distended, no guarding, no hernia, no pulsatile mass, no rebound Genitourinary: no CVA tenderness Musculoskeletal: normal inspection Neurologic: oriented x3, responsive, resource conservation manager III-XII nml as tested, motor strength/ tone normal, sensory intact Psychiatric: mood/affect normal Skin: normal color, no rash, warm/dry, palpation normal Lymphatic: normal inspection, no adenopathy Medical Decision Making Diagnostic Impression: Primary Impression: Dizziness ER Course Multiple differentials considered including but not limited to anemia, electrolyte pathology neurological, neurosurgical Patient's baseline blood work are appropriate patient also requesting note for work And will have initial conservative outpatient trial I did not feel patient met criteria for acute imaging Labs Test 07/29/18 11:30 White Blood Count 9.5 K/UL (4.8-10.8) Red Blood Count 5.30 M/UL (4.20-5.40) Hemoglobin 14.6 G/DL (12.0-16.0) Hematocrit 43.6 % (37.0-47.0) Mean Corpuscular Volume 82 FL (80-99) Mean Corpuscular Hemoglobin 27.5 PG (27.0-31.0) Mean Corpuscular Hemoglobin Concent 33.4 G/DL (32.0-36.0) Red Cell Distribution Width 13.1 % (11.6-14.8) Platelet Count 296 K/UL (150-450) Mean Platelet Volume 6.7 FL (6.5-10.1) Neutrophils (%) (Auto) 49.8 % (45.0-75.0) Lymphocytes (%) (Auto) 37.3 % (20.0-45.0) Monocytes (%) (Auto) 5.8 % (1.0-10.0) Eosinophils (%) (Auto) 5.6 % (0.0-3.0) Basophils (%) (Auto) 1.7 % (0.0-2.0) Urine Color Pale yellow Urine Appearance Clear Urine pH 8 (4.5-8.0) Urine Specific [place] 1.010 (1.005-1.035) Urine Protein Negative (NEGATIVE) Urine Glucose (UA) Negative (NEGATIVE) Urine Ketones Negative (NEGATIVE) Urine Blood Negative (NEGATIVE) Urine Nitrite Negative (NEGATIVE) Urine Bilirubin Negative (NEGATIVE) Urine Urobilinogen Normal MG/DL (0.0-1.0) Urine Leukocyte Esterase Negative (NEGATIVE) Urine HCG, Qualitative Negative (NEGATIVE) Sodium Level 136 MMOL/L (136-145) Potassium Level 3.9 MMOL/L (3.5-5.1) Chloride Level 101 MMOL/L (98-107) Carbon Dioxide Level 27 MMOL/L (21-32) Anion Gap 8 mmol/L (5-15) Blood Urea Nitrogen 12 mg/dL (7-18) Creatinine 0.8 MG/DL (0.55-1.30) Estimat Glomerular Filtration Rate > 60 mL/min (>60) Glucose Level 92 MG/DL (74-106) Calcium Level 8.4 MG/DL (8.5-10.1) Last Vital Signs Date Time Temp Pulse Resp B/P (MAP) Pulse Ox O2 Delivery O2 Flow Rate FiO2 07/29/18 12:14 98.1 76 20 126/74 98 Room Air Status: improved Disposition: HOME, SELF-CARE Condition: Improved Scripts Meclizine Hcl* (MECLIZINE*) 25 Mg Tablet 25 MG ORAL THREE TIMES A DAY for 5 Days, TAB Prov: Ty Colvin DO 07/29/18 Departure Forms: Return to Work Return to Work in (Days): 1 Return to Work Date: July 30, 2018 Patient Instructions: Dizziness Additional Instructions: Patient is provided with the discharge instructions notified to follow up with primary doctor in the next 2-3 days otherwise return to the er with any worsening symptoms. Please note that this report is being documented using [employer] technology. This can lead to erroneous entry secondary to incorrect interpretation by the dictating instrument. Ty Colvin DO July 29, 2018 13:19
== END 2018-07-29 12:25 | disposition home or self-care (01) ==
LOC: EMR 11:11
DX: R42 Dizziness and giddiness (principal)
CPT/HCPCS: 36415; 80048; 81003; 81025; 85025; 99283

== ENCOUNTER 2018-08-08 19:09 | Emergency (ER) | payer MEDICAID ==
[~2018-08-08] VITALS: Ht 167.6 cm; Wt 108.9 kg
[~2018-08-08 19:09] MED LIST changes: +MECLIZINE HCL25 MG ORAL
--- NOTE | 2018-08-08 19:23 | NUR ---
ED Nurse Note: pt walked in c/o dizziness since fri, pt reports she was here before and has hx vertigo, pt states it feels like ears go silent and feel like passing out, denies n/v/d. pt AA&ox4, gcs=15, skin warm and dry, resp even and unlabored on RA, -n/v/d, ambulates w/steady gait. report given to DENA Abdi.
[2018-08-08 19:32] VITALS: BP 123/82
[2018-08-08] MEDS ORDERED: Metoclopramide 10mg/2ml Inj IVP ONE (19:45)
[2018-08-08] MEDS ORDERED: Meclizine 25mg tab ORAL PRN (19:45)
--- NOTE | 2018-08-08 19:54 | NUR ---
ED Nurse Note: blood sent to lab
[2018-08-08 20:12] LABS: BASOPHILS % (AUTO) 1.5 % (0.0-2.0); EOSINOPHILS % (AUTO) 4.3 % (0.0-3.0); HEMATOCRIT 40.1 % (37.0-47.0); HEMOGLOBIN 13.6 G/DL (12.0-16.0); LYMPHOCYTES % (AUTO) 38.5 % (20.0-45.0); MEAN CORPUSCULAR VOLUME 80 FL (80-99); MONOCYTES % (AUTO) 4.7 % (1.0-10.0); PLATELET COUNT 274 K/UL (150-450); RED BLOOD COUNT 5.03 M/UL (4.20-5.40); RED CELL DISTRIBUTION WIDTH 12.6 % (11.6-14.8); WHITE BLOOD COUNT 10.3 K/UL (4.8-10.8)
[2018-08-08 20:15] LABS: ANION GAP 8 mmol/L (5-15); BLOOD UREA NITROGEN 14 mg/dL (7-18); CALCIUM 8.1 MG/DL (8.5-10.1); CARBON DIOXIDE 28 MMOL/L (21-32); CHLORIDE 104 MMOL/L (98-107); POTASSIUM 3.5 MMOL/L (3.5-5.1); SODIUM 139 MMOL/L (136-145)
[2018-08-08 20:19] LABS: ALANINE AMINOTRANSFERASE 29 U/L (12-78); ALBUMIN 3.8 G/DL (3.4-5.0); ALKALINE PHOSPHATASE 99 U/L (46-116); ASPARTATE AMINO TRANSFERASE 8 U/L (15-37); BILIRUBIN,TOTAL 0.2 MG/DL (0.2-1.0)
--- NOTE | 2018-08-08 20:31 | NUR ---
ED Nurse Note: JHON LOBATO PA-C CANCELLED CT ABD
--- NOTE | 2018-08-08 20:35 | Emergency Room Report ---
History of Present Illness General Chief Complaint: Dizziness Source: Patient Present Illness HPI 32-year-old female with history of benign positional vertigo here complaining of 4 days of increased dizziness, and vertigo. She reports that she ate noodles yesterday and about 30 minutes later started having severe abdominal pain and nausea. Reports 2 bouts of emesis. Denies blood in her vomit, denies diarrhea, constipation, blood in her stool. Denies hearing loss, ear pain, headache, blurred vision. Patient reports that in the past she has been told that she has episodes of vertigo however been referred to ear nose throat doctor. 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 Denies fever chills and URI symptoms. Denies syncope Allergies: Coded Allergies: No Known Allergies (Unverified , 08/08/18) Patient History Past Medical History: see triage record Past Surgical History: unable to obtain Pertinent Family History: none Last Menstrual Period: 07/09/18 Now: No : 0 Immunizations: UTD Reviewed Nursing Documentation: PMH: Agreed; PSxH: Agreed Review of Systems All Other Systems: negative except mentioned in HPI Physical Exam Vital Signs Date Time Temp Pulse Resp B/P (MAP) Pulse Ox O2 Delivery O2 Flow Rate FiO2 08/08/18 19:17 98.2 111 16 94 Room Air 08/08/18 19:32 123/82 Sp02 EP Interpretation: reviewed, normal General Appearance: no apparent distress, GCS 15, mild distress Head: normocephalic, atraumatic Eyes: bilateral eye PERRL, bilateral eye other - nystagmus ENT: normal ENT inspection, hearing grossly normal, normal pharynx, no angioedema, normal voice Neck: normal inspection, full range of motion, supple, thyroid normal Respiratory: normal inspection, chest non-tender, lungs clear, normal breath sounds, no rhonchi, no respiratory distress, no wheezing Cardiovascular #1: normal inspection, normal peripheral pulses, no gallop, no murmur Gastrointestinal: normal inspection, normal bowel sounds, non tender, soft, guarding - diffuse , negative mcburnys and rovsings. neg murphys and obturatior Genitourinary: no CVA tenderness Musculoskeletal: normal inspection, back normal Neurologic: normal inspection, alert, oriented x3 Psychiatric: normal inspection, judgement/insight normal Skin: normal inspection, no rash, warm/dry Lymphatic: normal inspection, no adenopathy, axilla node tender (R) Medical Decision Making PA Attestation All my diagnosis and treatment plans were reviewed ad discussed with my supervising physician Dr. Hancock Diagnostic Impression: Primary Impression: Benign positional vertigo Additional Impression: Gastroenteritis ER Course 32-year-old female with history of benign positional vertigo here complaining of 4 days of increased dizziness, and vertigo. She reports that she ate noodles yesterday and about 30 minutes later started having severe abdominal pain and nausea. Reports 2 bouts of emesis. Denies blood in her vomit, denies diarrhea, constipation, blood in her stool. Denies hearing loss, ear pain, headache, blurred vision. Patient reports that in the past she has been told that she has episodes of vertigo however been referred to ear nose throat doctor. 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 Denies fever chills and URI symptoms. Denies syncope Ddx considered but are not limited to: appendicitis, cholycisitis, gastritis, gasthroentritis, UTI, pylonephritis, SBO, diverticulitis, influenza with GI manifestation, UT, complication with , viral gasteroentritis, benign positional vertigo, central vertigo, head trauma Vital signs: are WNL, pt. is afebrile H&PE are most consistent with: benign positional vertigo, viral gastroentritis ORDERS: CBC, CMP, UA, urine preg, meclizine, zofran, reglan ED INTERVENTIONS: reglan, meclizine, DISCHARGE: At this time pt. is stable for d/c to home. Will provide printed patient care instructions, and any necessary prescriptions. Care plan and follow up instructions have been discussed with the patient prior to discharge. white blood Counts normal and patient started feeling better after administration of Reglan and meclizine abdominal pain is secondary to viral gastroenteritis post consumption of the uterus no need for abdominal CT patient agrees Last Vital Signs Date Time Temp Pulse Resp B/P (MAP) Pulse Ox O2 Delivery O2 Flow Rate FiO2 08/08/18 19:32 98.2 11 16 123/82 94 Room Air Disposition: HOME, SELF-CARE Condition: Stable Scripts Ondansetron (Zofran) 4 Mg Tablet 4 MG ORAL Q6H PRN for Nausea & Vomiting, #15 TAB Prov: Ivory Tripathi 08/08/18 Meclizine Hcl* (MECLIZINE*) 25 Mg Tablet 25 MG ORAL THREE TIMES A DAY, #21 TAB Prov: Ivory Tripathi 08/08/18 Referrals: [facility]ERR[facility] (PCP) Patient Instructions: Vertigo, Viral Gastroenteritis, Adult, [id number] Additional Instructions: Follow-up with a primary care provider for referral to ear nose throat doctor, Jose Antonio maneuver is advised, your abdominal pain is secondary to gastroenteritis and no indication for abdominal CT scan as needed as your pain started right after eating noodles and your blood work does not suggest any infection or if worsening nausea vomiting, and abdominal pain return to the emergency room Ivory Tripathi August 08, 2018 20:35
[2018-08-08] MEDS ORDERED: ZOFRAN4 M1 ORAL (20:36)
[2018-08-08] MEDS ORDERED: MECLIZINE HCL25 MG ORAL (20:36)
[2018-08-08 20:41] VITALS: BP 126/79
--- NOTE | 2018-08-08 20:42 | NUR ---
ER DISCHARGE NOTE: Patient is cleared to be discharged per ERMD, pt is aox4, on room air, with stable vital signs. pt was given dc and prescription instructions, pt was able to verbalize understanding, pt id band and iv site removed without complications. pt is able to ambulate with steady gait. pt took all belongings.
== END 2018-08-08 20:40 | disposition home or self-care (01) ==
LOC: EMR 19:46
DX: H81.10 Benign paroxysmal vertigo, unspecified ear (principal); K52.9 Noninfective gastroenteritis and colitis, unspecified; R42 Dizziness and giddiness
CPT/HCPCS: 36415; 80053; 81025; 83690; 85025; 96374; 99284; J2765

== ENCOUNTER 2018-10-17 20:58 | Emergency (ER) | payer MEDICAID ==
[~2018-10-17] VITALS: Ht 167.6 cm; Wt 102.1 kg
[~2018-10-17 20:58] MED LIST changes: +ZOFRAN4 M1 ORAL
[2018-10-17 21:05] VITALS: BP 126/88
--- NOTE | 2018-10-17 21:07 | NUR ---
ED Nurse Note: Patient presents as a walk-in accompanied by her mother and sister with complaints of increased command hallucination since medication dosage changes and additions.
[2018-10-17] MEDS ORDERED: SERTRALINE HCL100 MG PO (21:10)
[2018-10-17] MEDS ORDERED: ABILIFY10 MG ORAL (21:10)
[2018-10-17] MEDS ORDERED: LAMOTRIGINE25 M5 PO (21:12)
[2018-10-17] MEDS ORDERED: ZYPREXA20 MG ORAL (21:12)
[2018-10-17] MEDS ORDERED: PRISTIQ ER100 MG PO (21:42)
--- NOTE | 2018-10-17 21:44 | Emergency Room Report ---
History of Present Illness General Chief Complaint: Behavioral Complaint Source: Patient Present Illness HPI Patient is a 33-year-old female who presented after increased auditory hallucinations. Patient had a prior history of anxiety as well as psychosis. Patient had recently had her medications adjusted and was previously on Pristiq. Patient had been changed to Zoloft. Patient had previously been stable for approximately 1 year and had no recent hospitalizations. She denies any suicidal thoughts. Patient states that she had not been having any other medical complaints at this time. She denies any fever or stiff neck. Allergies: Coded Allergies: No Known Allergies (Unverified , 08/08/18) Patient History Past Medical History: see triage record Last Menstrual Period: 09/28/18 Now: No : 0 Para: 0 Reviewed Nursing Documentation: PMH: Agreed; PSxH: Agreed Nursing Documentation-PMH Past Medical History: No History, Except For History Of Psychiatric Problem: Yes - Schizophrenia; depression Review of Systems All Other Systems: negative except mentioned in HPI Physical Exam Vital Signs Date Time Temp Pulse Resp B/P (MAP) Pulse Ox O2 Delivery O2 Flow Rate FiO2 10/17/18 21:05 98.2 100 16 126/88 (101) 95 Room Air Sp02 EP Interpretation: reviewed, normal General Appearance: normal inspection, well appearing, no apparent distress, alert, GCS 15 Head: atraumatic ENT: normal ENT inspection, hearing grossly normal, normal voice Neck: normal inspection, full range of motion, supple, no bony tend Respiratory: normal inspection, lungs clear, normal breath sounds, no respiratory distress, no retraction, no wheezing Cardiovascular #1: regular rate, rhythm, no edema Gastrointestinal: normal inspection, normal bowel sounds, non tender, soft, no guarding, no hernia Genitourinary: no CVA tenderness Musculoskeletal: normal inspection, back normal, normal range of motion Neurologic: normal inspection, alert, oriented x3, responsive, can top setter III-XII nml as tested, speech normal Psychiatric: normal inspection, judgement/insight normal, mood/affect normal Medical Decision Making Diagnostic Impression: Primary Impression: Psychosis Last Vital Signs Date Time Temp Pulse Resp B/P (MAP) Pulse Ox O2 Delivery O2 Flow Rate FiO2 10/17/18 21:05 98.2 100 16 126/88 (101) 95 Room Air Disposition: HOME, SELF-CARE Condition: Stable Scripts Desvenlafaxine Succinate (PRISTIQ ER) 100 Mg Tab.er.24h 100 MG PO DAILY, #14 TAB Prov: Griffin Hancock MD 10/17/18 Patient Instructions: Psychosis Griffin Hancock MD Oct 17, 2018 21:44
[2018-10-17] MEDS ORDERED: LORazepam 1mg tab ORAL ONE (21:45)
[2018-10-17 21:50] VITALS: BP 126/88
--- NOTE | 2018-10-17 21:50 | NUR ---
ED Nurse Note: PAtient cleared for discharge with family, verbalized understanding of discharge instructions. patient departed with all belongings.
== END 2018-10-17 21:50 | disposition home or self-care (01) ==
LOC: EMR 21:22
DX: F29 Unspecified psychosis not due to a substance or known physiological condition (principal); F32.9 Major depressive disorder, single episode, unspecified; F20.9 Schizophrenia, unspecified
CPT/HCPCS: 99282

== ENCOUNTER 2018-12-08 00:51 | Emergency (ER) | payer MEDICAID ==
[~2018-12-08] VITALS: Ht 167.6 cm; Wt 102.1 kg
[~2018-12-08 00:51] MED LIST changes: +LAMOTRIGINE25 M5 PO; +SERTRALINE HCL100 MG PO; +ZYPREXA20 MG ORAL
[2018-12-08 00:55] VITALS: BP 118/80
--- NOTE | 2018-12-08 00:55 | NUR ---
ED Nurse Note: pt ambulated to ed c/o of dizziness when standing. pt states she fell down yesterday, denies trauma to head denies loc.
--- NOTE | 2018-12-08 01:21 | Emergency Room Report ---
History of Present Illness General Chief Complaint: Dizziness Source: Patient, Medical Record Present Illness HPI 33-year-old female with history of anxiety and vertigo. She presents with complaint of dizziness. Onset for last couple days. She said when she stands up after a few minutes she felt dizzy. She felt lightheaded like she cannot fall. Denies any trauma. No nausea no vomiting. No fever chills. Complain of numbness to her fingers. Initially thought it was her vertigo but no relief with meclizine. Denies any other complaint. Allergies: Coded Allergies: No Known Allergies (Unverified , 08/08/18) Patient History Past Medical History: see triage record, old chart reviewed Past Surgical History: none Pertinent Family History: none Social History: Denies: smoking Last Menstrual Period: 11/29/18 Now: No Immunizations: other Reviewed Nursing Documentation: PMH: Agreed; PSxH: Agreed Nursing Documentation-PMH Past Medical History: No History, Except For History Of Psychiatric Problem: Yes Review of Systems Eye: Denies: eye pain, blurred vision ENT: Denies: ear pain, nose congestion, throat swelling Respiratory: Denies: cough, shortness of breath Cardiovascular: Denies: chest pain, palpitations Gastrointestinal: Denies: abdominal pain, diarrhea, nausea, vomiting Musculoskeletal: Denies: back pain, joint pain Skin: Denies: rash Neurological: Reports: dizziness; Denies: headache, numbness Endocrine: Denies: increased thirst, increased urine Hematologic/Lymphatic: Denies: easy bruising All Other Systems: negative except mentioned in HPI Physical Exam Vital Signs Date Time Temp Pulse Resp B/P (MAP) Pulse Ox O2 Delivery O2 Flow Rate FiO2 12/08/18 00:55 95 18 Room Air 12/08/18 00:55 98.4 118/80 97 Vitals normal Sp02 EP Interpretation: reviewed, normal General Appearance: well appearing, no apparent distress, alert Head: normocephalic, atraumatic Eyes: bilateral eye PERRL, bilateral eye EOMI ENT: hearing grossly normal, normal pharynx Neck: full range of motion, supple, no meningismus Respiratory: chest non-tender, lungs clear, normal breath sounds Cardiovascular #1: regular rate, rhythm, no murmur Gastrointestinal: normal bowel sounds, non tender, no mass, no organomegaly, no bruit, non-distended Musculoskeletal: back normal, gait/station normal, normal range of motion Psychiatric: mood/affect normal Medical Decision Making Diagnostic Impression: Primary Impression: Dizziness of unknown cause Additional Impression: UTI (urinary tract infection) Qualified Codes: N30.00 - Acute cystitis without hematuria ER Course Presents with dizziness. Orthostatic. No evidence of TIA or CVA. No evidence of any infection other than mild UTI. She walked in here without any difficulty. Will discharge home. Last Vital Signs Date Time Temp Pulse Resp B/P (MAP) Pulse Ox O2 Delivery O2 Flow Rate FiO2 12/08/18 00:55 98.4 95 18 118/80 (93) 97 Room Air Status: improved Disposition: HOME, SELF-CARE Condition: Stable Scripts Nitrofurantoin Monohyd/M-Cryst (Nitrofurantoin Bosque-Mcr 100 mg) 100 Mg Capsule 100 MG ORAL Q12H, #14 CAP Prov: Alec Marcelino MD 12/08/18 Referrals: [facility],REFERRING (PCP) Patient Instructions: Dizziness Additional Instructions: Increase fluids. Follow-up with your doctor in 7 days. Return if worse. Alec Marcelino MD Dec 08, 2018 01:21
[2018-12-08 01:26] VITALS: BP_SYST 101; BP_SYST 103; BP_SYST 106; BP_DIAS 41; BP_DIAS 58; BP_DIAS 68
[2018-12-08 01:36] LABS: APPEARANCE,URINE CLEAR; BILIRUBIN, URINE NEGATIVE (NEGATIVE); COLOR,URINE PALE YELLOW; GLUCOSE, URINE (UA) NEGATIVE (NEGATIVE); KETONES,URINE NEGATIVE (NEGATIVE); NITRITE,URINE NEGATIVE (NEGATIVE); PH,URINE 6.5 (4.5-8.0); PROTEIN,URINE 1+ (NEGATIVE); UROBILINOGEN,URINE NORMAL MG/DL (0.0-1.0)
[2018-12-08 01:59] LABS: LEUKOCYTE ESTERASE ,URINE 2+ (NEGATIVE)
[2018-12-08] MEDS ORDERED: MACROBID100 MG ORAL (02:13)
[2018-12-08 02:17] VITALS: BP 94/64
--- NOTE | 2018-12-08 02:17 | NUR ---
ER DISCHARGE NOTE: Patient is cleared to be discharged per ERMD, pt is aox4, on room air, with stable vital signs. pt was given dc and prescription instructions, pt was able to verbalize understanding, pt id bandremoved. pt is able to ambulate with steady gait. pt took all belongings.
--- NOTE | 2018-12-08 02:22 | Diagnostic Imaging Report ---
Indications: Dizziness for one day Technique: Spiral acquisitions obtained through the brain. Angled axial and coronal 5 x 5 mm slices were reconstructed. Total dose length product 1390.16 mGycm. CTDI vol(s) 70.38 mGy. Dose reduction achieved using automated exposure control Comparison: None. Findings: No acute intracranial hemorrhage or edema. No mass effect nor midline shift. Normal phillips-white differentiation. Visualized orbits are unremarkable. There is minimal ethmoid and sphenoid mucosal disease noted. The mastoids are clear. The calvarium is intact. Impression: Negative for acute intracranial bleed or mass effect Minimal sinus disease This essentially agrees with the preliminary interpretation provided overnight by [facility]. The CT scanner at [facility] is accredited by the [employer] and the scans are performed using protocols designed to limit radiation exposure to as low as reasonably achievable to attain images of sufficient resolution adequate for diagnostic evaluation.
== END 2018-12-08 02:17 | disposition home or self-care (01) ==
LOC: EMR 01:19
DX: R42 Dizziness and giddiness (principal); N30.00 Acute cystitis without hematuria; F41.9 Anxiety disorder, unspecified
CPT/HCPCS: 70450; 81003; 81025; 87086; 87181; Z7502; 99284

== ENCOUNTER 2019-04-05 22:11 | Emergency (ER) | payer MEDICARE, MEDICAID ==
[~2019-04-05] VITALS: Ht 167.6 cm; Wt 102.1 kg
[~2019-04-05 22:11] MED LIST changes: +MACROBID100 MG ORAL
[2019-04-05 22:25] VITALS: BP 123/67
--- NOTE | 2019-04-05 22:30 | NUR ---
ED Nurse Note: pt triaged, waiting in waiting room to be called in.
--- NOTE | 2019-04-05 23:23 | NUR ---
ED Nurse Note: called , not in waiting room.
== END 2019-04-05 23:23 | disposition left against medical advice (07) ==
LOC: EMR 23:23
DX: R42 Dizziness and giddiness (principal); Z53.21 Procedure and treatment not carried out due to patient leaving prior to being seen by health care provider